=== PATIENT | male | born 1955 | race Caucasian/White ===

== ENCOUNTER 2018-12-14 11:21 | Inpatient (IN) | payer OTHER ==
[2018-12-14] MEDS ORDERED: CYCLOBENZAPRINE 10 MG TAB PO STA (12:06)
[2018-12-14] MEDS ORDERED: KETOROLAC 60 MG/2 ML VIAL IM STA (12:06)
--- NOTE | 2018-12-14 12:51 | ED ---
Back Pain HPI - General Source: patient, RN notes reviewed Limitations: no limitations <Catarino Moore - Last Filed: 12/14/18 14:58> <Gus Gudino - Last Filed: 12/14/18 15:03> - General Chief Complaint: Back Pain/Injury Stated Complaint: back pain Time Seen by Provider: 12/14/18 11:58 - History of Present Illness Initial Comments: 63-year-old male presents emergency Department with chief complaint of low back pain. Patient states she's had pain last few days. He does admit that he injured his right hip and low back in the past and states his been walking differently because it bothers in the rocks while states now his left low back pain. Denies any bowel bladder incontinence or retention. Denies any saddle anesthesias or lower extremity paresthesias. He has no abdominal complaints including diarrhea constipation. Patient denies any fevers or chills no dysuria no hematuria. Patient states is very anxious. Patient states that he took some Motrin last night. (Catarino Moore) - Related Data Home Medications Medication Instructions Recorded Confirmed Aspirin EC [Ecotrin Low Dose] 81 mg PO DAILY 12/14/18 12/14/18 [facility] 4 tab PO DAILY PRN 12/14/18 12/14/18 Calcium Carbonate [Calcium] 600 mg PO DAILY 12/14/18 12/14/18 Multivitamins, Thera [Multivitamin 1 tab PO DAILY 12/14/18 12/14/18 (formulary)] Naproxen Sodium [Aleve] 880 mg PO DAILY PRN 12/14/18 12/14/18 Allergies Allergy/AdvReac Type Severity Reaction Status Date / Time No Known Allergies Allergy Verified 12/14/18 11:52 Review of Systems ROS Other: All systems not noted in ROS Statement are negative. <Catarino Moore - Last Filed: 12/14/18 14:58> ROS Other: All systems not noted in ROS Statement are negative. <Gus Gudino - Last Filed: 12/14/18 15:03> ROS Statement: Those systems with pertinent positive or pertinent negative responses have been documented in the HPI. Past Medical History Past Medical History: No Reported History History of Any Multi-Drug Resistant Organisms: None Reported Past Surgical History: No Surgical Hx Reported Past Psychological History: No Psychological Hx Reported Smoking Status: Never smoker Past Alcohol Use History: None Reported Past Drug Use History: None Reported <Catarino Moore - Last Filed: 12/14/18 14:58> General Exam Limitations: no limitations General appearance: alert, in no apparent distress, anxious Head exam: Present: atraumatic, normocephalic, normal inspection Eye exam: Present: normal appearance, PERRL, EOMI. Absent: scleral icterus, conjunctival injection, periorbital swelling Respiratory exam: Present: normal lung sounds bilaterally. Absent: respiratory distress, wheezes, rales, rhonchi, stridor Cardiovascular Exam: Present: normal rhythm, tachycardia, normal heart sounds. Absent: systolic murmur, diastolic murmur, rubs, gallop, clicks GI/Abdominal exam: Present: soft, normal bowel sounds. Absent: distended, tenderness, guarding, rebound, rigid Extremities exam: Present: other (Lower extremity strength equal bilaterally, neurovascular intact equal color equal warmth pain with left straight leg raise) Back exam: Present: full ROM, tenderness (Mild left lower lumbar), paraspinal tenderness. Absent: CVA tenderness (R), CVA tenderness (L), vertebral tenderness Neurological exam: Present: alert, oriented X3, CN II-XII intact, reflexes normal. Absent: motor sensory deficit Skin exam: Present: warm, dry, intact, normal color. Absent: rash <Catarino Moore - Last Filed: 12/14/18 14:58> Vital Signs 12/14/18 12/14/18 11:31 12:48 Temperature 98.5 F Pulse Rate 115 H 104 H Respiratory 18 20 Rate Blood Pressure 158/95 176/93 O2 Sat by Pulse 97 95 Oximetry Medical Decision Making - Lab Data Result diagrams: 12/14/18 14:17 12/14/18 14:17 <Catarino Moore - Last Filed: 12/14/18 14:58> - Lab Data Result diagrams: 12/14/18 14:17 12/14/18 14:17 <Gus Gudino - Last Filed: 12/14/18 15:03> - Medical Decision Making 63-year-old male presented for low back pain. X-rays obtained which shows compression fracture CT is obtained which shows extensive bony involvement with cancer. Patient will be admitted for further workup and pain management. (Catarino Moore) Case was discussed with practitioner caryn. Chart and reports reviewed. Case was discussed with Dr. Cole, who will admit covering for hospital call. Oncology will be placed on consult. (Gus Gudino) - Lab Data Lab Results 12/14/18 12/14/18 Range/Units 14:17 14:17 WBC 12.8 H (3.8-10.6) k/uL RBC 5.30 (4.30-5.90) m/uL Hgb 14.0 (13.0-17.5) gm/dL Hct 43.1 (39.0-53.0) % MCV 81.4 (80.0-100.0) fL MCH 26.5 (25.0-35.0) pg MCHC 32.5 (31.0-37.0) g/dL RDW 15.3 (11.5-15.5) % Plt Count 398 (150-450) k/uL Neutrophils % 76 % Lymphocytes % 19 % Monocytes % 3 % Eosinophils % 1 % Basophils % 0 % Neutrophils # 9.7 H (1.3-7.7) k/uL Lymphocytes # 2.4 (1.0-4.8) k/uL Monocytes # 0.4 (0-1.0) k/uL Eosinophils # 0.1 (0-0.7) k/uL Basophils # 0.1 (0-0.2) k/uL Sodium 142 (137-145) mmol/L Potassium 4.4 (3.5-5.1) mmol/L Chloride 106 (98-107) mmol/L Carbon Dioxide 26 (22-30) mmol/L Anion Gap 10 mmol/L BUN 22 H (9-20) mg/dL Creatinine 0.85 (0.66-1.25) mg/dL Est GFR (CKD-EPI)AfAm >90 (>60 ml/min/1.73 sqM) Est GFR (CKD-EPI)NonAf >90 (>60 ml/min/1.73 sqM) Glucose 118 H (74-99) mg/dL Calcium 10.1 (8.4-10.2) mg/dL Total Bilirubin 0.7 (0.2-1.3) mg/dL AST 52 (17-59) U/L ALT 39 (21-72) U/L Alkaline Phosphatase 1359 H (38-126) U/L Total Protein 7.4 (6.3-8.2) g/dL Albumin 3.8 (3.5-5.0) g/dL - EKG Data EKG Comments: EKG performed at 20:15 sinus tachycardia with rate of 111 VT 160 QRS 82 QT/QTC 326/443 (Catarino Moore) Disposition <Catarino Moore - Last Filed: 12/14/18 14:58> <Gus Gudino - Last Filed: 12/14/18 15:03> Clinical Impression: Metastatic cancer, Lumbar compression fracture Disposition: ADMITTED IP TO THIS HOSP Referrals: None,Stated [Primary Care Provider] - 1-2 days
--- NOTE | 2018-12-14 13:14 | XR ---
EXAMINATION TYPE: XR lumbosacral spine min 4V DATE OF EXAM: 12/14/2018 CLINICAL HISTORY: Low back pain for 4 days. TECHNIQUE: Frontal, lateral, and oblique images of the lumbar spine are obtained. COMPARISON: None FINDINGS: There are 5 lumbar type vertebral bodies identified. There is mild borderline compression fracture with poorly defined lucency through the L2 vertebra, extension to superior endplate is felt present. No suspicious posterior retropulsion is seen. Alignment is satisfactory. There is advanced d isc space narrowing L5-S1 level. There is mild to moderate additional multilevel disc space narrowing . Mild multilevel anterior and lateral spurring is appreciated on oblique images. Facet arthropathy l ower lumbar spine is seen. Multilevel spinous process hypertrophy is noted. There is suggestion of ab normal mixed sclerotic and lytic appearance to bone adjacent to left sacroiliac joint. IMPRESSION: Mild to moderate compression type fracture L2 level may be pathologic and acute in age. C orrelate for primary neoplasm or underlying Paget's disease. Further clinical workup advised.
--- NOTE | 2018-12-14 14:09 | CT ---
EXAMINATION TYPE: CT lumbar spine wo con DATE OF EXAM: 12/14/2018 COMPARISON: Plain film same date HISTORY: Back pain CT DLP: 1576.4 mGycm Automated exposure control for dose reduction was used. An unenhanced CT of the lumbar spine was performed. Bone and soft tissue window settings are submitt ed as well as coronal and sagittal reconstructions. FINDINGS: There is abnormal lucency involving the sacrum and lumbar vertebral bodies. Sacrum shows large area o f destruction and there is also lytic destruction with associated soft tissue mass involving the left ilium as noted on plain film, abnormal soft tissue extends into the spinal canal. Lumbar vertebral b odies show underlying degenerative disc change. Lytic destruction with associated soft tissue masses present within the sacrum and L2, T12 vertebral bodies. There is some retropulsion at L2 causing some spinal stenosis which is moderate to severe. Ly tic destruction extends into the right pedicle and transverse process, lamina. Indeterminate lung nodules are present at the right lung base greater than left as visualized portion s. IMPRESSION: Metastatic disease to the spine, sacrum, lungs as described.
[2018-12-14 14:37] LABS: Basophils # (A) 0.1 k/uL (0-0.2); Basophils % (A) 0 %; Eosinophils # (A) 0.1 k/uL (0-0.7); Eosinophils % (A) 1 %; HCT 43.1 % (39.0-53.0); Lymphocytes # (A) 2.4 k/uL (1.0-4.8); Lymphocytes % (A) 19 %; MCH 26.5 pg (25.0-35.0); MCHC 32.5 g/dL (31.0-37.0); MCV 81.4 fL (80.0-100.0); Mean Platelet Volume 6.4; Monocytes # (A) 0.4 k/uL (0-1.0); Monocytes % (A) 3 %; Neutrophils # (A) 9.7 k/uL (1.3-7.7); Neutrophils % (A) 76 %; Platelet Count 398 k/uL (150-450); RDW 15.3 % (11.5-15.5); WBC 12.8 k/uL (3.8-10.6)
[2018-12-14 14:48] LABS: ALT 39 U/L (21-72); AST 52 U/L (17-59); Albumin 3.8 g/dL (3.5-5.0); Alkaline Phosphatase 1359 U/L (38-126); Anion Gap 10 mmol/L; Blood Urea Nitrogen 22 mg/dL (9-20); Calcium 10.1 mg/dL (8.4-10.2); Carbon Dioxide 26 mmol/L (22-30); Chloride 106 mmol/L (98-107); Glucose 118 mg/dL (74-99); Potassium 4.4 mmol/L (3.5-5.1); Sodium 142 mmol/L (137-145); Total Bilirubin 0.7 mg/dL (0.2-1.3); Total Protein 7.4 g/dL (6.3-8.2)
[2018-12-14] MEDS ORDERED: MORPHINE SULFATE 4 MG/ML SYRINGE IVP STA (14:58)
[2018-12-14] MEDS ORDERED: ONDANSETRON 4 MG/2 ML VIAL IVP STA (14:58)
[2018-12-14] MEDS ORDERED: NALOXONE 0.4 MG/ML 1 ML VIAL IV PRN (15:24)
[2018-12-14] MEDS ORDERED: ONDANSETRON 4 MG/2 ML VIAL IVP PRN (15:24)
[2018-12-14] MEDS ORDERED: HYDROmorphone 0.5 MG/0.5 ML SYRINGE IVP PRN (15:24)
--- NOTE | 2018-12-14 16:23 | P.HPIM ---
History of Present Illness 63-year-old pleasant gentleman who hasn't seen a doctor that if he is came in with complaints of low back pain has been getting worse for few months much worse for last 3-4 days including difficulty walking although patient denied any localized pain patient has minimal radicular pain to the right groin area denied any saddle anesthesia loss of bowel or bladder incontinence. Patient any fever chills nausea vomiting. Patient had a back x-ray which was suspicious for metastatic disease because of which patient had a CAT scan of the lumbar spine which showed metastatic disease to vertebral bodies of the T12 , L1 without any significant spinal involvement. Patient does have metastatic disease in the lung as well patient is not a smoker never got any screening procedures like colonoscopy or prostate exam in the past. Review of Systems REVIEW OF SYSTEMS: CONSTITUTIONAL: No fever, no malaise, no fatigue. HEENT: No recent visual problems or hearing problems. Denied any sore throat. CARDIOVASCULAR: No chest pain, orthopnea, PND, no palpitations, no syncope. PULMONARY: No shortness of breath, no cough, no hemoptysis. GASTROINTESTINAL: No diarrhea, no nausea, no vomiting, no abdominal pain. NEUROLOGICAL: No headaches, no weakness, no numbness. HEMATOLOGICAL: Denies any bleeding or petechiae. GENITOURINARY: Denies any burning micturition, frequency, or urgency. MUSCULOSKELETAL/RHEUMATOLOGICAL: As mentioned in HPI ENDOCRINE: Denies any polyuria or polydipsia. The rest of the 14-point review of systems is negative. Past Medical History Past Medical History: No Reported History History of Any Multi-Drug Resistant Organisms: None Reported Past Surgical History: No Surgical Hx Reported Past Psychological History: No Psychological Hx Reported Smoking Status: Never smoker Past Alcohol Use History: None Reported Past Drug Use History: None Reported Medications and Allergies Home Medications Medication Instructions Recorded Confirmed Type Aspirin EC [Ecotrin Low Dose] 81 mg PO DAILY 12/14/18 12/14/18 History [facility] 4 tab PO DAILY PRN 12/14/18 12/14/18 History Calcium Carbonate [Calcium] 600 mg PO DAILY 12/14/18 12/14/18 History Multivitamins, Thera [Multivitamin 1 tab PO DAILY 12/14/18 12/14/18 History (formulary)] Naproxen Sodium [Aleve] 880 mg PO DAILY PRN 12/14/18 12/14/18 History Allergies Allergy/AdvReac Type Severity Reaction Status Date / Time No Known Allergies Allergy Verified 12/14/18 11:52 Physical Exam Vitals: Vital Signs Temp Pulse Resp BP Pulse Ox 12/14/18 15:47 98.0 F 106 H 20 166/96 98 12/14/18 12:48 104 H 20 176/93 95 12/14/18 11:31 98.5 F 115 H 18 158/95 97 Intake and Output 12/14/18 12/14/18 12/14/18 06:59 14:59 22:59 Other: Weight 127.006 kg PHYSICAL EXAMINATION: GENERAL: The patient is alert and oriented x3, not in any acute distress. Morbidly obese HEENT: Pupils are round and equally reacting to light. EOMI. No scleral icterus. No conjunctival pallor. Normocephalic, atraumatic. No pharyngeal erythema. No thyromegaly. CARDIOVASCULAR: S1 and S2 present. No murmurs, rubs, or gallops. PULMONARY: Chest is clear to auscultation, no wheezing or crackles. ABDOMEN: Soft, nontender, nondistended, normoactive bowel sounds. No palpable organomegaly. MUSCULOSKELETAL: No joint swelling or deformity. EXTREMITIES: No cyanosis, clubbing, or pedal edema. NEUROLOGICAL: Gross neurological examination did not reveal any focal deficits. SKIN: No rashes. Results CBC & Chem 7: 12/14/18 14:17 12/14/18 14:17 Labs: Abnormal Lab Results - Last 24 Hours (Table) 12/14/18 12/14/18 Range/Units 14:17 14:17 WBC 12.8 H (3.8-10.6) k/uL Neutrophils # 9.7 H (1.3-7.7) k/uL BUN 22 H (9-20) mg/dL Glucose 118 H (74-99) mg/dL Alkaline Phosphatase 1359 H (38-126) U/L Assessment and Plan Plan: -Severe back pain: Secondary to metastatic disease with unknown primary with some radiculopathy, patient was started on Decadron patient was started started on Toradol as well along with the GI prophylaxis. We'll consult oncology further workup indicated depending on oncology recommendations we'll also consult radiation oncology to see there is any benefit from radiation therapy even before the biopsy . Physical data been occupational therapy consultation, no evidence of spinal cord compression clinically. -Leukocytosis reactive Tachycardia and elevated blood pressure probably secondary to pain. The pain monitor the blood pressure unsure whether patient is diabetic -Morbid obesity Patient will need pharmacologic GI as well as DVT prophylaxis
[2018-12-14 16:38] VITALS: BMI 40.1
[2018-12-14 17:07] LABS: Appearance,Urine Clear (Clear); Bilirubin,Urine Negative (Negative); Blood,Urine Negative (Negative); Color,Urine Yellow; Glucose,Urine (UA) Negative (Negative); Hyaline Casts,Urine 1 /lpf (0-2); Ketones,Urine 1+ (Negative); Leukocyte Esterase,Urine Trace (Negative); Mucus,Urine Occasional /hpf; Nitrite,Urine Negative (Negative); PH, Urine 5.5 (5.0-8.0); Protein,Urine Trace (Negative); RBC,Urine 1 /hpf (0-5); Specific Gravity,Urine 1.011 (1.001-1.035); Squamous Epithelial Cell,Urine 1 /hpf (0-4); Urobilinogen,Urine <2.0 mg/dL (<2.0); WBC,Urine 4 /hpf (0-5)
[2018-12-14] MEDS: DEXAMETHASONE SOD PHOSPHATE 4 MG/ML 1 ML VIAL IV SCH ×2 (17:13→23:32)
--- NOTE | 2018-12-14 17:56 | CT ---
EXAMINATION TYPE: CT pelvis wo con DATE OF EXAM: 12/14/2018 COMPARISON: CT lumbar spine and plain film lumbar spine same date HISTORY: back pain CT DLP: 781.6 mGycm Automated exposure control for dose reduction was used. Helical acquisition through the pelvis FINDINGS: Multiple lytic lesions are scattered within the spine and pelvis with soft tissue component compatibl e with metastatic disease. No evident pelvic adenopathy. No free fluid. Uterus and adnexal structures are unremarkable. Diverticular changes associated with the sigmoid colon. Urinary bladder is normal. IMPRESSION: METASTATIC DISEASE.
--- NOTE | 2018-12-14 18:57 | XR ---
EXAMINATION TYPE: XR chest 2V DATE OF EXAM: 12/14/2018 COMPARISON: NONE HISTORY: Chest pain TECHNIQUE: Frontal and lateral views of the chest are obtained. FINDINGS: There are numerous nodular densities throughout the lungs that measure up to 1.5 cm. There is no heart failure. Heart is top normal in size. Thoracic aorta is atheromatous. There is osteopeni a with 40% anterior wedging of a lower thoracic vertebra. There is calcification at the right shoulde r joint. IMPRESSION: Multiple pulmonary nodules. No heart failure. Pulmonary metastatic disease is possible. Follow-up is recommended.
[2018-12-14] MEDS: FAMOTIDINE 20 MG TAB PO SCH (22:03)
[2018-12-14] MEDS: HEPARIN SODIUM,PORCINE 5,000 UNIT/ML 1 ML VIAL SQ SCH (23:31)
[2018-12-14] MEDS: MORPHINE SULFATE 4 MG/ML SYRINGE IV PRN (23:58)
[2018-12-15] MEDS: DEXAMETHASONE SOD PHOSPHATE 4 MG/ML 1 ML VIAL IV SCH ×4 (06:23→23:12)
[2018-12-15] MEDS: HEPARIN SODIUM,PORCINE 5,000 UNIT/ML 1 ML VIAL SQ SCH ×3 (07:29→23:12)
[2018-12-15] MEDS: FAMOTIDINE 20 MG TAB PO SCH ×2 (07:29→20:39)
[2018-12-15] MEDS: MORPHINE SULFATE 4 MG/ML SYRINGE IV PRN ×2 (07:35→13:23)
[2018-12-15] MEDS: IOPAMIDOL-300 CONTRAST 30 ML VIAL (ORAL USE) PO PRN ×2 (08:01→08:57)
--- NOTE | 2018-12-15 11:12 | CT ---
EXAMINATION TYPE: CT ChestAbdPelvis w con DATE OF EXAM: 12/15/2018 COMPARISON: CT pelvis 12/14/2018 HISTORY: Metastatic cancer to the bone CT DLP: 2133.1 mGycm Automated exposure control for dose reduction was used. CONTRAST: CT scan of the chest, abdomen and pelvis is performed with Oral Contrast and with IV Contrast, patien t injected with 100 mL of Isovue 300. FINDINGS: LUNGS: There are in numerable pulmonary nodules seen bilaterally measuring from 1 cm to 2 mm scattere d throughout all lobes and segments of the lungs bilaterally. No pneumothorax. There is a small right pleural effusion. Calcified granuloma in the right lung noted. MEDIASTINUM: Aorta of normal caliber. Calcified lymph nodes in the hilum and mediastinum noted. OTHER: Skin thickening with multiple large left breast masses the largest of which is seen to measur e 5.2 cm.. LIVER/GB: There is a gallstone and there is gallbladder hydrops. Gallbladder measures approximately 1 1 cm. PANCREAS: No significant abnormality is seen. SPLEEN: Splenic granuloma noted. ADRENALS: No significant abnormality is seen. KIDNEYS: No significant abnormality is seen. BOWEL: No significant abnormality is seen. LYMPH NODES: No greater than 1 cm abdominal or pelvic lymph nodes are appreciated. OSSEOUS STRUCTURES: There is extensive bony metastasis throughout virtually all structures of the vis ualized skeletal system including the expansile lesion of the clavicle on the left. The sternum also is involved with multiple rib lesions as well as the medial aspect of the right clavicle. Destructive lesions involving the pelvis or widespread as well as bilateral femur. Expansile lesion previously n oted with suspected previous pathologic fracture of the right pubic ramus is noted. Soft tissue mass with extensive destructive change of the sacrum as previously noted. Involvement and encasement this sacral foramina or hollow is suspected. At the level of S1 there appears to be abnormal soft tissue r esult in severe compression of the spinal canal. Multilevel degenerative disc disease and facet arthr opathy noted. At the level of L2 there is a compression fracture with extension into the pedicle and vertebral body there is retropulsion and likely severe compression of the thecal sac. Multiple rib de formities are seen. Compression fracture of T8 L1 and endplate deformity of T12. IMPRESSION: 1. And destructive bony lesions with suspicion of thecal sac or spinal cord compression at the level of L2 and severe thecal sac compression at the level of S1. Compression fractures of L2 and T8. Could not exclude cord contact or compression at T8, L2 or severe nerve root impingement thecal sac compre ssion within the sacrum. 2. Innumerable pulmonary nodules compatible with widespread metastases 3. Large left chest or breast masses as discussed above. Report called to patient's nurse A Red level critical message alert has been initiated for Alonso Butler MD via the [employer] Results System on 12/15/2018 11:10 AM. This message alert has been sent to Alonso Butler MD via the p references provided by the clinician for the receipt of Radiology Critical Findings[place] [id number].
--- NOTE | 2018-12-15 16:20 | P.CONS ---
History of Present Illness - Reason for Consult Consult date: 12/15/18 back pain Requesting physician: Alonso Butler - Chief Complaint low back pain - History of Present Illness The patient is a 63-year-old female (identifies as male) with a history of progressive low back pain. He presents to the hospital and imaging reveals multiple bony metastases, likely from a breast primary. The patient reports a history of right-sided hip pain, which initially began back in June. He thought this represented a pinched nerve, and did not seek any medical care. The patient has in fact not seeing any physicians in 35 years. He reported tolerable low back pain for several months, but does report that he had to be less active and was unable to do any physical activities at work. This pain however became increasingly severe this past weekend. He noted that when standing up from sitting or laying down, pain in the lower back was become intolerable and shoot up to 10 out of 10. Within the patient was in active, the pain was still present however only a 3-4 out of 10. The patient has been able to ambulate, but notes that actually getting up to walk has become more difficult. He specifically denies difficulty with loss of bladder, bowel control, or weakness in the legs. He does report a right-sided thigh numbness, which usually occurs after he's walked for several steps. The patient was admitted to the ER on December 14, and a CT scan of the lumbar spine and pelvis were performed. These scans revealed multiple lytic lesions in the spine and pelvis, as well as a large destructive right sacral lesion, and a compression fracture at L2 with concern for canal encroachment. The patient subsequently underwent on December [address] scan of the chest, abdomen and pelvis. The study revealed a 5 cm left breast mass, innumerable 1-2 cm lung metastasis, as well as significant bone disease. There was concern for possible spinal canal invasion at T8, L2 and significant mass effect on the thecal sac at the level of the sacrum. Review of Systems Constitutional: Denies chills, Denies fever Eyes: bilateral blurred vision Ears: deny: decreased hearing Ears, nose, mouth and throat: Denies headache Cardiovascular: Denies chest pain Respiratory: Denies congestion, Denies cough Gastrointestinal: Denies abdominal pain Genitourinary: Denies flank pain Musculoskeletal: Reports low back pain Integumentary: Denies rash Neurological: Denies aphasia, Denies ataxia Psychiatric: Denies confusion Past Medical History Past Medical History: No Reported History History of Any Multi-Drug Resistant Organisms: None Reported Past Surgical History: No Surgical Hx Reported Past Anesthesia/Blood Transfusion Reactions: No Reported Reaction Past Psychological History: No Psychological Hx Reported Smoking Status: Never smoker Past Alcohol Use History: None Reported Past Drug Use History: None Reported - Past Family History Father Family Medical History: No Reported History Medications and Allergies Home Medications Medication Instructions Recorded Confirmed Type Aspirin EC [Ecotrin Low Dose] 81 mg PO DAILY 12/14/18 12/14/18 History [facility] 4 tab PO DAILY PRN 12/14/18 12/14/18 History Calcium Carbonate [Calcium] 600 mg PO DAILY 12/14/18 12/14/18 History Multivitamins, Thera [Multivitamin 1 tab PO DAILY 12/14/18 12/14/18 History (formulary)] Naproxen Sodium [Aleve] 880 mg PO DAILY PRN 12/14/18 12/14/18 History Allergies Allergy/AdvReac Type Severity Reaction Status Date / Time No Known Allergies Allergy Verified 12/14/18 11:52 Physical Exam Vitals: Vital Signs Temp Pulse Resp BP Pulse Ox 12/15/18 07:00 98.3 F 85 18 149/76 97 12/15/18 00:00 97.9 F 94 18 131/78 96 12/14/18 19:00 98.0 F 101 H 18 133/73 94 L 12/14/18 16:45 97.6 F 105 H 18 162/84 96 Intake and Output 12/15/18 12/15/18 12/15/18 06:59 14:59 22:59 Other: Voiding Method Toilet # Voids 1 1 Weight 127.006 kg - Constitutional General appearance: cooperative, obese - EENT Eyes: EOMI, PERRLA ENT: hearing grossly normal - Neck Neck: no lymphadenopathy - Respiratory Respiratory: bilateral: CTA - Cardiovascular Rhythm: regular - Gastrointestinal General gastrointestinal: no distended - Neurologic Neurologic: CNII-XII intact - Musculoskeletal Musculoskeletal: gait normal, strength equal bilaterally - Psychiatric Psychiatric: A&O x's 3 Results CBC & Chem 7: 12/14/18 14:17 12/14/18 14:17 Labs: Abnormal Lab Results - Last 24 Hours (Table) 12/14/18 Range/Units 16:30 Urine Protein Trace H (Negative) Urine Ketones 1+ H (Negative) Ur Leukocyte Esterase Trace H (Negative) Urine Mucus Occasional H (None) /hpf CT scan - abdomen: report reviewed, image reviewed CT scan - chest: report reviewed, image reviewed CT scan - pelvis: report reviewed, image reviewed Assessment and Plan Plan: 63 year old female (identifies as male) with likely new metastatic left-sided breast cancer with extensive bony disease and significant low back pain with weight-bearing. 1. T8/L2 disease - concern for spinal canal invasion. MRI pending, add on decadron. Patient not showing overt signs of myelopathy. MRI T/L spine. Patient simulated and given first fraction of radiation today. Will also need extensive disease within sacrum treated, but that was omitted for expediency today. 2. Left sided breast cancer - presumptive diagnosis. Pathology from biopsy pending. Patient treated with radiation despite pending pathology considering concern for spinal canal invasion on CT. Time with Patient: Greater than 30
--- NOTE | 2018-12-15 17:03 | P.PN ---
Subjective Progress Note Date: 12/15/18 Interval history: 63-year-old pleasant gentleman who hasn't seen a doctor that if he is came in with complaints of low back pain has been getting worse for few months much worse for last 3-4 days including difficulty walking although patient denied any localized pain patient has minimal radicular pain to the right groin area denied any saddle anesthesia loss of bowel or bladder incontinence. Patient any fever chills nausea vomiting. Patient had a back x-ray which was suspicious for metastatic disease because of which patient had a CAT scan of the lumbar spine which showed metastatic disease to vertebral bodies of the T12 , L1 without any significant spinal involvement. Patient does have metastatic disease in the lung as well patient is not a smoker never got any screening procedures like colonoscopy or prostate exam in the past. 12/15/2018 CT report suspicion of thecal sac or spinal cord compression at the level of L2 and severe thecal sac compression at the level of S1 in addition to compression fractures of L2 and T8, could not exclude cord contact or compression at T8, L2 or severe nerve root impingement thecal sac compression within the sacrum, Pulmonary nodules-widespread metastasis, large left chest/breast mass.breast biopsy pending. MRA of lumbar spine ordered. Review of Systems REVIEW OF SYSTEMS: CONSTITUTIONAL: No fever, no malaise, no fatigue. HEENT: No recent visual problems or hearing problems. Denied any sore throat. CARDIOVASCULAR: No chest pain, orthopnea, PND, no palpitations, no syncope. PULMONARY: No shortness of breath, no cough, no hemoptysis. GASTROINTESTINAL: No diarrhea, no nausea, no vomiting, no abdominal pain. NEUROLOGICAL: No headaches, no weakness, no numbness. HEMATOLOGICAL: Denies any bleeding or petechiae. GENITOURINARY: Denies any burning micturition, frequency, or urgency. MUSCULOSKELETAL/RHEUMATOLOGICAL: As mentioned in HPI ENDOCRINE: Denies any polyuria or polydipsia. The rest of the 14-point review of systems is negative. Active Medications Dexamethasone Sodium Phosphate (Decadron) 4 mg IV Q6HR [facility] Last Admin: 12/15/18 11:11 Dose: 4 mg Famotidine (Pepcid) 20 mg PO BID [facility] Last Admin: 12/15/18 07:29 Dose: 20 mg Heparin Sodium (Porcine) (Heparin) 5,000 unit SQ Q8HR [facility] Last Admin: 12/15/18 14:59 Dose: Not Given Ketorolac Tromethamine (Toradol) 15 mg IVP Q6HR PRN PRN Reason: Pain Stop: 12/19/18 16:15 Morphine Sulfate (Morphine Sulfate (Inj)) 4 mg IV Q4HR PRN PRN Reason: Severe Pain Last Admin: 12/15/18 13:23 Dose: 4 mg Naloxone HCl (Narcan) 0.2 mg IV Q2M PRN PRN Reason: Opioid Reversal Ondansetron HCl (Zofran) 4 mg IVP Q8HR PRN PRN Reason: Nausea And Vomiting Objective - Vital Signs Vital signs: Vital Signs Temp 98.3 F 12/15/18 07:00 Pulse 85 12/15/18 07:00 Resp 18 12/15/18 07:00 BP 149/76 12/15/18 07:00 Pulse Ox 97 12/15/18 07:00 Intake & Output 12/14/18 12/15/18 12/15/18 18:59 06:59 18:59 Intake Total 296 Balance 296 Weight 127.006 kg 127.006 kg Intake: Oral 296 Other: Voiding Method Toilet Toilet Urinal # Voids 1 1 - Exam GENERAL: The patient is alert and oriented x3, not in any acute distress. Morbidly obese HEENT: Pupils are round and equally reacting to light. EOMI. No scleral icterus. No conjunctival pallor. Normocephalic, atraumatic. CARDIOVASCULAR: S1 and S2 present. No murmurs, rubs, or gallops. PULMONARY: Chest is clear to auscultation, no wheezing or crackles. ABDOMEN: Soft, nontender, nondistended, normoactive bowel sounds. No palpable organomegaly. MUSCULOSKELETAL: No joint swelling or deformity. EXTREMITIES: No cyanosis, clubbing, or pedal edema. NEUROLOGICAL: Gross neurological examination did not reveal any focal deficits. SKIN: No rashes. - Labs CBC & Chem 7: 12/14/18 14:17 12/14/18 14:17 Labs: Abnormal Lab Results - Last 24 Hours (Table) 12/14/18 Range/Units 16:30 Urine Protein Trace H (Negative) Urine Ketones 1+ H (Negative) Ur Leukocyte Esterase Trace H (Negative) Urine Mucus Occasional H (None) /hpf Assessment and Plan Assessment: -Severe back pain: Secondary to metastatic disease with unknown primary with some radiculopathy. CT suggestive of spinal cord compression,T8,L2 as mentioned above. MR lumbar spine pending. -Possible left-sided breast cancer, biopsy pending -Leukocytosis reactive Tachycardia and elevated blood pressure probably secondary to pain. -Morbid obesity Plan continue on current medication regime ,monitoring and symptomatic treatment. Maintain Decadron, Toradol. Evaluated by Oncology radiology with first radiation treatment administered today. MRA of lumbar spine ordered. GI and DVT prophylaxis. Prognosis guarded given multiple complex medical issues. The impression and plan of care has been dictated as directed. : I performed a history and examination of this patient, discussed the same with the dictator. I agree with the dictator's note ,documented as a scribe. Any additional findings or plans will be noted.
--- NOTE | 2018-12-16 01:43 | P.CONS ---
History of Present Illness - Reason for Consult Consult date: 12/15/18 Bone mets - History of Present Illness The pt is 63 yr old, and identifies self as male. However, on imaging female internal and external genitalia noted, indicating biologic female. The pt had not seen a physician for 30 + years. She had been having rt lower back and rt groin pain off and on since about 9-10 mths. A few days prior to admission, while getting up in [employer]ab[employer]ism , she felt " something pop" in her lower pelvic area, and developed marked pain, with radiation to the left hip/ groin, and down the LLE. She therefore came in to the ER, with CT of the L-S spine showing metastatic appearing lesions in the lower T spine, L spine ( most prominent at L2) with significant destruction of the sacrum on the left. Nodules in both lung bases were also noted. She was thus admitted and consult placed. No prior history of malignancy, per pt Review of Systems Constitutional: Reports chronic pain, Denies chills, Denies fever Eyes: denies blurred vision, denies pain Ears: deny: decreased hearing, ear discharge, earache, tinnitus Ears, nose, mouth and throat: Denies headache, Denies sore throat Cardiovascular: Denies chest pain, Denies shortness of breath Respiratory: Denies cough Gastrointestinal: Denies abdominal pain, Denies diarrhea, Denies nausea, Denies vomiting Genitourinary: Reports as per HPI Musculoskeletal: Reports as per HPI, Reports low back pain Integumentary: Denies pruritus, Denies rash Neurological: Denies numbness, Denies weakness Psychiatric: Denies anxiety, Denies depression Endocrine: Denies fatigue, Denies weight change Hematologic/Lymphatic: Reports as per HPI Past Medical History Past Medical History: No Reported History History of Any Multi-Drug Resistant Organisms: None Reported Past Surgical History: No Surgical Hx Reported Past Anesthesia/Blood Transfusion Reactions: No Reported Reaction Past Psychological History: No Psychological Hx Reported Smoking Status: Never smoker Past Alcohol Use History: None Reported Past Drug Use History: None Reported - Past Family History Father Family Medical History: No Reported History Medications and Allergies Home Medications Medication Instructions Recorded Confirmed Type Aspirin EC [Ecotrin Low Dose] 81 mg PO DAILY 12/14/18 12/14/18 History [place] [facility] And [facility] 4 tab PO DAILY PRN 12/14/18 12/14/18 History Calcium Carbonate [Calcium] 600 mg PO DAILY 12/14/18 12/14/18 History Multivitamins, Thera [Multivitamin 1 tab PO DAILY 12/14/18 12/14/18 History (formulary)] Naproxen Sodium [Aleve] 880 mg PO DAILY PRN 12/14/18 12/14/18 History Allergies Allergy/AdvReac Type Severity Reaction Status Date / Time No Known Allergies Allergy Verified 12/14/18 11:52 Physical Exam Vitals: Vital Signs Temp Pulse Resp BP Pulse Ox 12/16/18 00:17 97.5 F L 79 16 146/79 96 12/15/18 20:00 97.7 F 84 18 142/80 93 L 12/15/18 18:13 98.0 F 92 18 154/87 91 L 12/15/18 07:00 98.3 F 85 18 149/76 97 Intake and Output 12/15/18 12/15/18 12/16/18 14:59 22:59 06:59 Other: Voiding Method Toilet Toilet # Voids 1 1 Weight 127.006 kg - Constitutional General appearance: no acute distress - EENT Eyes: EOMI, PERRLA ENT: hearing grossly normal, normal oropharynx - Neck Neck: no lymphadenopathy Thyroid: bilateral: normal size - Respiratory Respiratory: bilateral: CTA - Cardiovascular Rhythm: regular Heart sounds: normal: S1, S2 - Gastrointestinal General gastrointestinal: normal bowel sounds, soft - Integumentary Integumentary: ulcer (destructive ulcer involving left nipple areolar complex) - Neurologic Neurologic: CNII-XII intact, focal deficits - Musculoskeletal Musculoskeletal: strength equal bilaterally - Psychiatric Psychiatric: A&O x's 3, appropriate affect Left firm, fixed breast mass, 4-5 cm , irregular Results CBC & Chem 7: 12/14/18 14:17 12/14/18 14:17 Comments: CT L spine report reviewed L spine x ray report reviewed Chest x-ray: report reviewed CT scan - pelvis: report reviewed Assessment and Plan (1) Metastatic cancer Narrative/Plan: The pt is presenting with multiple areas of metastatic appearing lesions involving the T/L spine and sacrum. She has no evidence of cord compression clinically. - Case d/w IM. Based on physical exam findings, a breast primary is most likely - Consult placed for IR for biopsy of breast mass - Rad Onc consult placed. Case d/w Rad Onc. As noted, there is no evidence of cord compression clinically. They will target the sacrum, and L2, as well as possibly T8 - Pt has been placed on steroids - Further recommendations once pathology is finalized Current Visit: Yes Status: Acute Code(s): C79.9 - SECONDARY MALIGNANT NEOPLASM OF UNSPECIFIED SITE SNOMED Code(s): 499150927
[2018-12-16] MEDS: MORPHINE SULFATE 4 MG/ML SYRINGE IV PRN ×3 (02:40→12:43)
[2018-12-16] MEDS: DEXAMETHASONE SOD PHOSPHATE 4 MG/ML 1 ML VIAL IV SCH ×4 (05:18→23:45)
[2018-12-16] MEDS: HEPARIN SODIUM,PORCINE 5,000 UNIT/ML 1 ML VIAL SQ SCH ×3 (07:39→23:45)
[2018-12-16] MEDS: FAMOTIDINE 20 MG TAB PO SCH ×2 (07:39→21:38)
[2018-12-16] MEDS: KETOROLAC 30 MG/ML 1 ML VIAL IVP PRN ×2 (11:32→17:05)
--- NOTE | 2018-12-16 14:31 | MR ---
EXAMINATION TYPE: MR lumbar spine wo/w con DATE OF EXAM: 12/16/2018 COMPARISON: HISTORY: Cord compression TECHNIQUE: Multiplanar, multisequence images of the lumbar spine were acquired utilizing 13 mL intravenous Gadav ist gadolinium contrast. There is abnormal extensive decreased signal on the T1 images involving numerous lower thoracic and l umbar vertebral bodies. There is some expansion of the L2 vertebral body posteriorly into the spinal canal. There is slight compression deformity of 20% of L2. There is also involvement of the sacrum. T here is abnormal signal extending into the pedicles. There is diffuse pathologic enhancement. There i s a mild relative spinal stenosis at L2 level due to the posterior expansion of the vertebral body. T here is also mild expansion posteriorly at the T12 level and S1 level with slight narrowing of the sp inal canal. There is no lumbar paraspinal mass. Abnormal similar signal pattern also is present with expansion involving the visualized iliac crests. Lumbar nerve roots appear intact. There is some narrowing of the L2-3 neural foramina bilaterally due to the posterior expansion. IMPRESSION: Extensive abnormal signal in the lumbar spine and sacral spine with pathologic enhancement that is co nsistent with diffuse metastatic disease. This could be multiple myeloma. There is expansion of L2 ve rtebra with mild relative spinal stenosis. There is also minimal posterior expansion of T12 and sligh t narrowing of the spinal canal. There is similar change at S1 vertebra with narrowing of the sacral spinal canal at S1 level. There is pathologic compression fracture of L2 vertebra.
--- NOTE | 2018-12-16 15:53 | P.PN ---
Subjective 63-year-old pleasant gentleman who hasn't seen a doctor that if he is came in with complaints of low back pain has been getting worse for few months much worse for last 3-4 days including difficulty walking although patient denied any localized pain patient has minimal radicular pain to the right groin area denied any saddle anesthesia loss of bowel or bladder incontinence. Patient any fever chills nausea vomiting. Patient had a back x-ray which was suspicious for metastatic disease because of which patient had a CAT scan of the lumbar spine which showed metastatic disease to vertebral bodies of the T12 , L1 without any significant spinal involvement. Patient does have metastatic disease in the lung as well patient is not a smoker never got any screening procedures like colonoscopy or prostate exam in the past. 12/15/2018 CT report suspicion of thecal sac or spinal cord compression at the level of L2 and severe thecal sac compression at the level of S1 in addition to compression fractures of L2 and T8, could not exclude cord contact or compression at T8, L2 or severe nerve root impingement thecal sac compression within the sacrum, Pulmonary nodules-widespread metastasis, large left chest/breast mass.breast biopsy pending. MRA of lumbar spine ordered. 12/16/2018 MRI did not show any chronic compression but did show cervical canal stenosis at the couple areas patient's pain is not well controlled at patient is getting Toradol discussed at length with oncology the recommending breast biopsy before discharge on Tuesday meantime we'll try to control his pain. Constitutional: Denied any fatigue denied any fever. Cardio vascular: denied any chest pain, palpitations Gastrointestinal denied any nausea vomiting Pulmonary: Denied any shortness of breath cough Neurologic denied any new focal deficits All inpatient medications were reviewed and appropriate changes in these medications as dictated in the interval history and assessment and plan. Objective - Vital Signs Vital signs: Vital Signs Temp 97.4 F L 12/16/18 15:00 Pulse 85 12/16/18 15:00 Resp 16 12/16/18 15:00 BP 147/79 12/16/18 15:00 Pulse Ox 93 L 12/16/18 15:00 Intake & Output 12/15/18 12/16/18 12/16/18 18:59 06:59 18:59 Weight 127.006 kg Other: Voiding Method Toilet Toilet Toilet # Voids 1 1 1 - Exam GENERAL: The patient is alert and oriented x3, not in any acute distress. Morbidly obese HEENT: Pupils are round and equally reacting to light. EOMI. No scleral icterus. No conjunctival pallor. Normocephalic, atraumatic. CARDIOVASCULAR: S1 and S2 present. No murmurs, rubs, or gallops. PULMONARY: Chest is clear to auscultation, no wheezing or crackles. ABDOMEN: Soft, nontender, nondistended, normoactive bowel sounds. No palpable organomegaly. MUSCULOSKELETAL: No joint swelling or deformity. EXTREMITIES: No cyanosis, clubbing, or pedal edema. NEUROLOGICAL: Gross neurological examination did not reveal any focal deficits. SKIN: No rashes. - Labs CBC & Chem 7: 12/14/18 14:17 12/14/18 14:17 Labs: Abnormal Lab Results - Last 24 Hours (Table) 12/16/18 Range/Units 06:39 CA 15-3 Antigen 1043.9 H (0.0-32.3) U/mL Assessment and Plan Plan: -Back pain secondary to metastatic disease patient does have radiculopathy no cord compression as per the MRI continue with Decadron -Possible primary breast cancer biopsy results pending, CEA 15-3 is elevated -Leukocytosis reactive -Morbid obesity Patient will need pharmacologic GI as well as DVT prophylaxis
[2018-12-17] MEDS: DEXAMETHASONE SOD PHOSPHATE 4 MG/ML 1 ML VIAL IV SCH ×4 (05:43→23:43)
[2018-12-17] MEDS: HEPARIN SODIUM,PORCINE 5,000 UNIT/ML 1 ML VIAL SQ SCH ×3 (07:57→23:43)
[2018-12-17] MEDS: KETOROLAC 30 MG/ML 1 ML VIAL IVP PRN ×3 (07:58→23:43)
[2018-12-17] MEDS: SENNOSIDES-DOCUSATE SODIUM 1 EACH TAB PO SCH (07:58)
[2018-12-17] MEDS: FAMOTIDINE 20 MG TAB PO SCH ×2 (07:58→20:51)
[2018-12-17] MEDS ORDERED: ENALAPRILAT 1.25 MG/ML 1 ML VIAL IVP PRN (10:06)
--- NOTE | 2018-12-17 13:16 | P.PN ---
Subjective 63-year-old pleasant gentleman who hasn't seen a doctor that if he is came in with complaints of low back pain has been getting worse for few months much worse for last 3-4 days including difficulty walking although patient denied any localized pain patient has minimal radicular pain to the right groin area denied any saddle anesthesia loss of bowel or bladder incontinence. Patient any fever chills nausea vomiting. Patient had a back x-ray which was suspicious for metastatic disease because of which patient had a CAT scan of the lumbar spine which showed metastatic disease to vertebral bodies of the T12 , L1 without any significant spinal involvement. Patient does have metastatic disease in the lung as well patient is not a smoker never got any screening procedures like colonoscopy or prostate exam in the past. 12/15/2018 CT report suspicion of thecal sac or spinal cord compression at the level of L2 and severe thecal sac compression at the level of S1 in addition to compression fractures of L2 and T8, could not exclude cord contact or compression at T8, L2 or severe nerve root impingement thecal sac compression within the sacrum, Pulmonary nodules-widespread metastasis, large left chest/breast mass.breast biopsy pending. MRA of lumbar spine ordered. 12/16/2018 MRI did not show any chronic compression but did show cervical canal stenosis at the couple areas patient's pain is not well controlled at patient is getting Toradol discussed at length with oncology the recommending breast biopsy before discharge on Tuesday meantime we'll try to control his pain. 12/17/2018 Patient pain is better controlled now patient will undergo breast biopsy tomorrow and evaluation by radiation oncology after which patient probably can be discharged Constitutional: Denied any fatigue denied any fever. Cardio vascular: denied any chest pain, palpitations Gastrointestinal denied any nausea vomiting Pulmonary: Denied any shortness of breath cough Neurologic denied any new focal deficits All inpatient medications were reviewed and appropriate changes in these medications as dictated in the interval history and assessment and plan. Objective - Vital Signs Vital signs: Vital Signs Temp 97.5 F L 12/17/18 08:00 Pulse 72 12/17/18 08:00 Resp 16 12/17/18 08:00 BP 169/81 12/17/18 11:04 Pulse Ox 97 12/17/18 08:00 Intake & Output 12/16/18 12/17/18 12/17/18 18:59 06:59 18:59 Intake Total 480 Balance 480 Intake: Oral 480 Other: Voiding Method Toilet Toilet Toilet # Voids 1 2 - Exam GENERAL: The patient is alert and oriented x3, not in any acute distress. Morbidly obese HEENT: Pupils are round and equally reacting to light. EOMI. No scleral icterus. No conjunctival pallor. Normocephalic, atraumatic. CARDIOVASCULAR: S1 and S2 present. No murmurs, rubs, or gallops. PULMONARY: Chest is clear to auscultation, no wheezing or crackles. ABDOMEN: Soft, nontender, nondistended, normoactive bowel sounds. No palpable organomegaly. MUSCULOSKELETAL: No joint swelling or deformity. EXTREMITIES: No cyanosis, clubbing, or pedal edema. NEUROLOGICAL: Gross neurological examination did not reveal any focal deficits. SKIN: No rashes. - Labs CBC & Chem 7: 12/14/18 14:17 12/14/18 14:17 Labs: Abnormal Lab Results - Last 24 Hours (Table) 12/16/18 Range/Units 06:39 CA 15-3 Antigen 1043.9 H (0.0-32.3) U/mL Assessment and Plan Plan: -Back pain secondary to metastatic disease patient does have radiculopathy no cord compression as per the MRI continue with Decadron. Patient will undergo breast biopsy tomorrow -Possible primary breast cancer biopsy results pending, CEA 15-3 is elevated -Leukocytosis reactive -Morbid obesity Patient will need pharmacologic GI as well as DVT prophylaxis
[2018-12-18] MEDS: DEXAMETHASONE SOD PHOSPHATE 4 MG/ML 1 ML VIAL IV SCH ×4 (05:46→23:10)
[2018-12-18] MEDS: HEPARIN SODIUM,PORCINE 5,000 UNIT/ML 1 ML VIAL SQ SCH ×3 (08:04→23:10)
[2018-12-18] MEDS: KETOROLAC 30 MG/ML 1 ML VIAL IVP PRN ×3 (08:10→23:10)
[2018-12-18] MEDS: SENNOSIDES-DOCUSATE SODIUM 1 EACH TAB PO SCH (08:11)
[2018-12-18] MEDS: FAMOTIDINE 20 MG TAB PO SCH ×2 (08:11→20:13)
[2018-12-18 11:03] LABS: Mean Platelet Volume 6.3; Platelet Count 460 k/uL (150-450)
[2018-12-18 11:19] LABS: Prothrombin Time 10.6 sec (9.0-12.0)
--- NOTE | 2018-12-18 12:36 | USB ---
ULTRASOUND GUIDED FNA THYROID BIOPSY: CLINICAL HISTORY: Left breast mass FINDINGS: The procedure was explained to the patient. The risks, complications, benefits and alternatives were discussed and any questions were answered. Informed consent was obtained. Patient was placed supin e on the ultrasound table and prepped and draped in the usual sterile fashion. Utilizing a 16 gauge needle, 4 passes were made into the left breast mass. Surgical clip placed post procedure. Patient was stable throughout the procedure. Pathology is pending. All elements of maximal barrier and sterile technique were utilized. IMPRESSION: 1. Successful ultrasound guided core biopsy left breast mass.
--- NOTE | 2018-12-18 17:41 | P.PN ---
Subjective Progress Note Date: 12/18/18 Interval history: 63-year-old pleasant gentleman who hasn't seen a doctor that if he is came in with complaints of low back pain has been getting worse for few months much worse for last 3-4 days including difficulty walking although patient denied any localized pain patient has minimal radicular pain to the right groin area denied any saddle anesthesia loss of bowel or bladder incontinence. Patient any fever chills nausea vomiting. Patient had a back x-ray which was suspicious for metastatic disease because of which patient had a CAT scan of the lumbar spine which showed metastatic disease to vertebral bodies of the T12 , L1 without any significant spinal involvement. Patient does have metastatic disease in the lung as well patient is not a smoker never got any screening procedures like colonoscopy or prostate exam in the past. 12/15/2018 CT report suspicion of thecal sac or spinal cord compression at the level of L2 and severe thecal sac compression at the level of S1 in addition to compression fractures of L2 and T8, could not exclude cord contact or compression at T8, L2 or severe nerve root impingement thecal sac compression within the sacrum, Pulmonary nodules-widespread metastasis, large left chest/breast mass.breast biopsy pending. MRA of lumbar spine ordered. 12/16/2018 MRI did not show any chronic compression but did show cervical canal stenosis at the couple areas patient's pain is not well controlled at patient is getting Toradol discussed at length with oncology the recommending breast biopsy before discharge on Tuesday meantime we'll try to control his pain. 12/17/2018 Patient pain is better controlled now patient will undergo breast biopsy tomorrow and evaluation by radiation oncology after which patient probably can be discharged 12/18/2018 awaiting breast biopsy and radiation treatment. Left breast wound noted, nondraining current, infectious disease consulted. Pain controlled on current pain management. Denies chest pain, palpitations or increasing shortness of breath. Constitutional: Denied any fatigue denied any fever. Cardio vascular: denied any chest pain, palpitations Gastrointestinal denied any nausea vomiting Pulmonary: Denied any shortness of breath cough Neurologic denied any new focal deficits All inpatient medications were reviewed and appropriate changes in these medications as dictated in the interval history and assessment and plan. Objective - Vital Signs Vital signs: Vital Signs Temp 98 F 12/18/18 12:30 Pulse 80 12/18/18 13:15 Resp 12 12/18/18 12:30 BP 147/82 12/18/18 13:15 Pulse Ox 98 12/18/18 12:30 Intake & Output 12/17/18 12/18/18 12/18/18 18:59 06:59 18:59 Intake Total 480 Balance 480 Intake: Oral 480 Other: Voiding Method Toilet Toilet # Voids 1 4 - Exam GENERAL: The patient is alert and oriented x3, not in any acute distress. Morbidly obese HEENT: Pupils are round and equally reacting to light. EOMI. No scleral icterus. No conjunctival pallor. Normocephalic, atraumatic. CARDIOVASCULAR: S1 and S2 present. No murmurs, rubs, or gallops. PULMONARY: Chest is clear to auscultation, no wheezing or crackles. ABDOMEN: Soft, nontender, nondistended, normoactive bowel sounds. No palpable organomegaly. MUSCULOSKELETAL: No joint swelling or deformity. EXTREMITIES: No cyanosis, clubbing, or pedal edema. NEUROLOGICAL: Gross neurological examination did not reveal any focal deficits. SKIN: Left breast wound, nondraining. - Labs CBC & Chem 7: 12/18/18 10:39 12/14/18 14:17 Labs: Abnormal Lab Results - Last 24 Hours (Table) 12/18/18 Range/Units 10:39 Plt Count 460 H (150-450) k/uL Assessment and Plan Assessment: -Back pain: Secondary to metastatic disease with unknown primary with some radiculopathy. CT suggestive of spinal cord compression,T8,L2 as mentioned above. MR lumbar spine reporting no cord compression. -Possible left-sided breast cancer, CEA 15-3 elevated, biopsy pending -Leukocytosis reactive -Left breast wound -Morbid obesity Plan continue on current medication regime ,monitoring and symptomatic treatment. Maintain Decadron, Toradol. Breast biopsy and radiation treatment pending. GI and DVT prophylaxis. Infectious disease consulted regarding left breast wound. Prognosis guarded given multiple complex medical issues. Discharge planning in progress pending ID clearance. The impression and plan of care has been dictated as directed. : I performed a history and examination of this patient, discussed the same with the dictator. I agree with the dictator's note ,documented as a scribe. Any additional findings or plans will be noted.
[2018-12-19] MEDS: KETOROLAC 30 MG/ML 1 ML VIAL IVP PRN ×2 (05:37→11:28)
[2018-12-19] MEDS: DEXAMETHASONE SOD PHOSPHATE 4 MG/ML 1 ML VIAL IV SCH ×2 (05:56→11:28)
[2018-12-19 07:23] VITALS: RESP 16
[2018-12-19] MEDS: SENNOSIDES-DOCUSATE SODIUM 1 EACH TAB PO SCH (08:28)
[2018-12-19] MEDS: HEPARIN SODIUM,PORCINE 5,000 UNIT/ML 1 ML VIAL SQ SCH (08:28)
[2018-12-19] MEDS: FAMOTIDINE 20 MG TAB PO SCH (08:29)
--- NOTE | 2018-12-19 13:12 | P.DS ---
Providers Date of admission: 12/14/18 15:28 Attending physician: Oneil Cole Consults: 12/14/18 15:24 Consult Physician Stat Consulting Provider: Marielos Lewis Consult Reason/Comments: Metastatic cancer, new diagnosis Do you want consulting provider notified?: Yes 12/14/18 16:17 Consult Physician Routine Consulting Provider: Iam Figueroa Consult Reason/Comments: metastatic disease to vertibral bodies Do you want consulting provider notified?: Yes 12/18/18 15:17 Consult Physician Routine Consulting Provider: Shaila Mirza Consult Reason/Comments: Breast wound Left Do you want consulting provider notified?: Yes Primary care physician: Stated None Hospital Course: pleasant gentleman who hasn't seen a doctor that if he is came in with complaints of low back pain has been getting worse for few months much worse for last 3-4 days including difficulty walking although patient denied any localized pain patient has minimal radicular pain to the right groin area denied any saddle anesthesia loss of bowel or bladder incontinence. Patient any fever chills nausea vomiting. Patient had a back x-ray which was suspicious for metastatic disease because of which patient had a CAT scan of the lumbar spine which showed metastatic disease to vertebral bodies of the T12 , L1 without any significant spinal involvement. Patient does have metastatic disease in the lung as well patient is not a smoker never got any screening procedures like colonoscopy or prostate exam in the past. 12/15/2018 CT report suspicion of thecal sac or spinal cord compression at the level of L2 and severe thecal sac compression at the level of S1 in addition to compression fractures of L2 and T8, could not exclude cord contact or compression at T8, L2 or severe nerve root impingement thecal sac compression within the sacrum, Pulmonary nodules-widespread metastasis, large left chest/breast mass.breast biopsy pending. MRA of lumbar spine ordered. 12/16/2018 MRI did not show any chronic compression but did show cervical canal stenosis at the couple areas patient's pain is not well controlled at patient is getting Toradol discussed at length with oncology the recommending breast biopsy before discharge on Tuesday meantime we'll try to control his pain. 12/17/2018 Patient pain is better controlled now patient will undergo breast biopsy tomorrow and evaluation by radiation oncology after which patient probably can be discharged 12/18/2018 awaiting breast biopsy and radiation treatment. Left breast wound noted, nondraining current, infectious disease consulted. Pain controlled on current pain management. Denies chest pain, palpitations or increasing shortness of breath. 12/19/2018 Patient did go for radiation today. Patient will be a evaluated by infectious disease regarding local wound care and will be discharged after evaluation. Patient has left breast mass infiltrating the skin forming big ulcerating lesion which may need local wound care. Patient will come back for radiation therapies and patient will follow-up with the oncology as an outpatient for further plan regarding the breast cancer - Exam GENERAL: The patient is alert and oriented x3, not in any acute distress. Morbidly obese HEENT: Pupils are round and equally reacting to light. EOMI. No scleral icterus. No conjunctival pallor. Normocephalic, atraumatic. CARDIOVASCULAR: S1 and S2 present. No murmurs, rubs, or gallops. PULMONARY: Chest is clear to auscultation, no wheezing or crackles. Breast exam as mentioned above ABDOMEN: Soft, nontender, nondistended, normoactive bowel sounds. No palpable organomegaly. MUSCULOSKELETAL: No joint swelling or deformity. EXTREMITIES: No cyanosis, clubbing, or pedal edema. NEUROLOGICAL: Gross neurological examination did not reveal any focal deficits. SKIN: Left breast wound, nondraining. Assessment and Plan Assessment: -Back pain: Secondary to metastatic disease with unknown primary with some radiculopathy. CT suggestive of spinal cord compression,T8,L2 as mentioned above. MR lumbar spine reporting no cord compression. -Possible left-sided breast cancer, CEA 15-3 elevated, biopsy pending -Leukocytosis reactive -Left breast wound -Morbid obesity Patient Condition at Discharge: Fair Plan - Discharge Summary Discharge Rx Participant: Yes New Discharge Prescriptions: New Famotidine [Pepcid] 20 mg PO BID #60 tab Ibuprofen [Motrin] 600 mg PO Q6HR PRN #40 tab PRN Reason: Pain Sennosides-Docusate Sodium [Senokot-S] 1 each PO DAILY tab HYDROcodone/APAP 5-325MG [[place] 5-325] 1 tab PO Q6HR PRN 3 Days #12 tab PRN Reason: Pain Lisinopril [Prinivil] 5 mg PO DAILY #30 tablet Dexamethasone [Decadron] 4 mg PO AC-TID #30 tablet Continue Multivitamins, Thera [Multivitamin (formulary)] 1 tab PO DAILY Aspirin EC [Ecotrin Low Dose] 81 mg PO DAILY Calcium Carbonate [Calcium] 600 mg PO DAILY Discontinued Naproxen Sodium [Aleve] 880 mg PO DAILY PRN PRN Reason: Pain [place] [facility] 4 tab PO DAILY PRN PRN Reason: Pain Discharge Medication List Aspirin EC [Ecotrin Low Dose] 81 mg PO DAILY 12/14/18 [History] Calcium Carbonate [Calcium] 600 mg PO DAILY 12/14/18 [History] Multivitamins, Thera [Multivitamin (formulary)] 1 tab PO DAILY 12/14/18 [History ] Famotidine [Pepcid] 20 mg PO BID #60 tab 12/18/18 [Rx] HYDROcodone/APAP 5-325MG [[place] 5-325] 1 tab PO Q6HR PRN 3 Days #12 tab [Rx] Ibuprofen [Motrin] 600 mg PO Q6HR PRN #40 tab 12/18/18 [Rx] Sennosides-Docusate Sodium [Senokot-S] 1 each PO DAILY tab 12/18/18 [Rx] Dexamethasone [Decadron] 4 mg PO AC-TID #30 tablet 12/19/18 [Rx] Lisinopril [Prinivil] 5 mg PO DAILY #30 tablet 12/19/18 [Rx] Follow up Appointment(s)/Referral(s): Alonso Butler MD [STAFF PHYSICIAN] - 1 Week (office will call with appointment time) Lee Ann Castillo MD [REFERRING] - 3 Days (Patient to call to make appointment) Geoffrey Romano MD [STAFF PHYSICIAN] - 12/19/18 12:30 pm (Patient is aware and was set up for 12/19/2018 at 12:30 12/20/2018 at 12:00) Activity/Diet/Wound Care/Special Instructions: decadron taper as per oncology. Pending wound care as per ID. Pending breast biopsy and radiation oncology DC recommendations Discharge Disposition: HOME SELF-CARE
[2018-12-19] MEDS ORDERED: ZOLEDRONIC ACID 4 MG in SODIUM CHLORIDE 0.9% 100 ML IV ONE (13:15)
[2018-12-19 15:50] VITALS: BP 202/115; PULSE 98; TEMP 97.5
--- NOTE | 2018-12-19 18:56 | CONS ---
CONSULTATION DATE OF SERVICE: 12/19/2018. REASON FOR CONSULTATION: Left breast/chest wall wound. HISTORY OF PRESENT ILLNESS: The patient is a 63-year-old male presenting to the ER at [facility] 12/14/2018 with lower pelvic pain. Patient has pain that was severe, almost 7 to 8 out of 10, with some radiation to the left hip and groin area. With these symptoms, the patient was evaluated by the ER physician. On arrival to the ER, the patient had CT of the lumbosacral spine showed metastatic appearing lesion in the lower T-spine with significant destruction of the sacrum on the left. The patient subsequently has been admitted to the hospital for further workup of the same. The patient apparently did have a fungating wound on his left breast area that has been there for more than a month now. The patient denies significant pain to the area. No significant foul-smelling drainage or surrounding swelling or redness with concern for possible primary breast cancer with secondary metastasis, musculoskeletal disease workup. The patient did have a biopsy of the breast that was done today. Infectious Disease was consulted for local care of his left breast wound. REVIEW OF SYSTEMS: Positive points have been mentioned in HPI. Rest of the systems have been negative. PAST MEDICAL HISTORY: No major illnesses. The patient has not seen a physician for almost 30 years. PAST SURGICAL HISTORY: No major surgeries. SOCIAL HISTORY: Denies smoking, drinking or drug use. FAMILY HISTORY: No pertinent findings noticed. ALLERGIES: No known drug allergies. MEDICATIONS: The patient is currently on Senokot, Zofran, Narcan, morphine sulfate, heparin, Pepcid and Decadron. PHYSICAL EXAMINATION: Blood pressure is 181/121 with a pulse of 88, temperature 98.3. He is 97% on room air. General description is an elderly male lying in bed in no distress. No tachypnea or accessory muscles of respiration use. HEENT: Shows no pallor or scleral icterus. Oral mucosa membranes are dry. No pharyngeal erythema or thrush. Neck trachea central. No thyromegaly. Lungs unlabored breathing. Clear to auscultation anteriorly. No wheeze or crackles. Heart S1, S2. Regular rate and rhythm. ABDOMEN: Soft. No tenderness. Extremities: No edema of the feet. Examination of the left breast in the presence of the RN did show a left lower quadrant wound with no significant slough tissue, no surrounding redness. No foul smelling drainage. NEUROLOGICAL: Patient is awake, alert, oriented times three. Mood and affect normal. LABS: Blood work done on admission not repeated shows hemoglobin 14, white count 12.8 with a BUN of 22, creatinine 0.85. DIAGNOSTIC IMPRESSION AND PLAN: Patient with left breast wound with concern for possible primary breast tumor fungating mass with secondary skeletal metastasis. The wound currently does not look infected with no slough tissue. Hence we will recommend local wound care and no need for any systemic antibiotic therapy. PLAN: 1. Aquacel Silver packing of the wound to be changed q.48 hours. 2. No need for any systematic antibiotic therapy for the same. 3. The patient advised to follow up with the [facility] local wound care if needed. Thank you for this consultation. MMRACHNAL / IJN: [id number] /
== END 2018-12-19 18:07 | disposition home or self-care (01) | DRG 543 ==
LOC: EC 11:21 → 4SSUR 15:28
PROVIDERS: ADMIT Internal Medicine; ATTEND Internal Medicine
PROC: DW061ZZ Beam Radiation of Pelvic Region using Photons 1 - 10 MeV (ICD-10-PCS; 2018-12-15)
PROC: 0HBU3ZX Excision of Left Breast, Percutaneous Approach, Diagnostic (ICD-10-PCS; principal; 2018-12-18)
DX: M84.58XA Pathological fracture in neoplastic disease, other specified site, initial encounter for fracture (principal); Z68.41 Body mass index [BMI] 40.0-44.9, adult; C78.02 Secondary malignant neoplasm of left lung; C78.01 Secondary malignant neoplasm of right lung; C79.51 Secondary malignant neoplasm of bone; E66.01 Morbid (severe) obesity due to excess calories; M48.02 Spinal stenosis, cervical region; C50.922 Malignant neoplasm of unspecified site of left male breast; M54.10 Radiculopathy, site unspecified; G89.3 Neoplasm related pain (acute) (chronic); Z71.3 Dietary counseling and surveillance; Z79.82 Long term (current) use of aspirin; Z79.899 Other long term (current) drug therapy
CPT/HCPCS: 36415; 71046; 71260; 72110; 72131; 72158; 72192; 74177; 77295; 77300; 77334; 77412; 77417; 80053; 81001; 82550; 84153; 85025; 85049; 85610; 86300; 88305; 88341; 88342; 93005; 96372; 96374; 96375; 99285

== ENCOUNTER 2018-12-30 11:23 | Inpatient (IN) | payer OTHER ==
[2018-12-30] MEDS ORDERED: SODIUM CHLORIDE 0.9% 1,000 ML IV STA ×3 (11:36→12:51)
[2018-12-30] MEDS ORDERED: ONDANSETRON 4 MG/2 ML VIAL IVP STA (11:36)
[2018-12-30] MEDS ORDERED: SODIUM CHLORIDE 0.9% 500 ML 500 ML IV STA (11:36)
--- NOTE | 2018-12-30 11:36 | ED ---
Weakness HPI - General Chief complaint: Weakness Stated complaint: NVD, Chest Pain Time Seen by Provider: 12/30/18 11:27 Source: patient, RN notes reviewed, old records reviewed Mode of arrival: wheelchair Limitations: no limitations - History of Present Illness Initial comments: This is a 63-year-old male the ER for evaluation. Patient does say for ev aluation regarding weakness. 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 Unknown primary but metastases to different areas of his bone and spine. Severe pain delirious. No recent travel history no sick contacts. Patient does admit to nausea vomiting and diarrhea. No abdominal pain. No current headaches. He denies any neurological changes. No modifying factors MD Complaint: generalized weakness -: week(s) Location: generalized Severity: moderate Severity scale (1-10): 4 Quality: numbness Consistency: constant, intermittent Improves with: none Worsens with: none Context: new medication Associated Symptoms: nausea/vomiting, myalgias - Related Data Home Medications Medication Instructions Recorded Confirmed Aspirin EC [Ecotrin Low Dose] 81 mg PO DAILY 12/14/18 12/30/18 Calcium Carbonate [Calcium] 600 mg PO DAILY 12/14/18 12/30/18 Multivitamins, Thera [Multivitamin 1 tab PO DAILY 12/14/18 12/30/18 (formulary)] Dexamethasone [Decadron] See Taper PO DIRECTED 12/30/18 12/30/18 Previous Rx's Medication Instructions Recorded Famotidine [Pepcid] 20 mg PO BID #60 tab 12/18/18 HYDROcodone/APAP 5-325MG [[place] 1 tab PO Q6HR PRN 3 Days #12 tab 12/18/18 5-325] Ibuprofen [Motrin] 600 mg PO Q6HR PRN #40 tab 12/18/18 Lisinopril [Prinivil] 5 mg PO DAILY #30 tablet 12/19/18 Allergies Allergy/AdvReac Type Severity Reaction Status Date / Time No Known Allergies Allergy Verified 12/30/18 12:58 Review of Systems ROS Statement: Those systems with pertinent positive or pertinent negative responses have been documented in the HPI. ROS Other: All systems not noted in ROS Statement are negative. Past Medical History Past Medical History: No Reported History Additional Past Medical History / Comment(s): Per pt cancer within spine, chest and breast History of Any Multi-Drug Resistant Organisms: None Reported Past Surgical History: No Surgical Hx Reported Past Anesthesia/Blood Transfusion Reactions: No Reported Reaction Past Psychological History: No Psychological Hx Reported Smoking Status: Never smoker Past Alcohol Use History: None Reported Past Drug Use History: None Reported - Past Family History Father Family Medical History: No Reported History General Exam Limitations: no limitations General appearance: alert, in no apparent distress Head exam: Present: atraumatic, normocephalic, normal inspection Eye exam: Present: normal appearance, PERRL, EOMI. Absent: scleral icterus, conjunctival injection, periorbital swelling ENT exam: Present: normal exam, mucous membranes dry Neck exam: Present: normal inspection. Absent: tenderness, meningismus, lymphadenopathy Respiratory exam: Present: normal lung sounds bilaterally. Absent: respiratory distress, wheezes, rales, rhonchi, stridor Cardiovascular Exam: Present: normal rhythm, tachycardia, normal heart sounds. Absent: systolic murmur, diastolic murmur, rubs, gallop, clicks GI/Abdominal exam: Present: soft, normal bowel sounds. Absent: distended, tenderness, guarding, rebound, rigid Extremities exam: Present: normal inspection, full ROM, normal capillary refill. Absent: tenderness, pedal edema, joint swelling, calf tenderness Back exam: Present: normal inspection Neurological exam: Present: alert, oriented X3, CN II-XII intact Psychiatric exam: Present: normal affect, normal mood Skin exam: Present: warm, dry, intact, normal color. Absent: rash Course Vital Signs 12/30/18 11:29 Temperature 97.8 F Pulse Rate 122 H Respiratory 18 Rate Blood Pressure 82/63 O2 Sat by Pulse 96 Oximetry - Reevaluation(s) Reevaluation #1: 12/30/18 13:46 Medical record is reviewed Reevaluation #2: 12/30/18 13:46 This certainly significantly dehydrated feels weak has no urine output EKG Findings - EKG Comments: EKG Findings:: EKG shows sinus tachycardia rate of 108, ID 1:30, QRS 76, QTc 472 Medical Decision Making - Medical Decision Making 73 male the ER for weakness dehydration nausea vomiting diarrhea. Patient be admitted for IV resuscitation and symptom control - Lab Data Result diagrams: 12/30/18 11:57 12/30/18 11:57 Lab Results 03/16/19 03/16/19 03/16/19 Range/Units 11:57 11:57 11:57 WBC 12.6 H (3.8-10.6) k/uL RBC 6.25 H (4.30-5.90) m/uL Hgb 16.2 (13.0-17.5) gm/dL Hct 52.0 (39.0-53.0) % MCV 83.3 (80.0-100.0) fL MCH 25.9 (25.0-35.0) pg MCHC 31.1 (31.0-37.0) g/dL RDW 15.6 H (11.5-15.5) % Plt Count 252 (150-450) k/uL Neutrophils % 90 % Lymphocytes % 3 % Monocytes % 6 % Eosinophils % 1 % Basophils % 0 % Neutrophils # 11.3 H (1.3-7.7) k/uL Lymphocytes # 0.3 L (1.0-4.8) k/uL Monocytes # 0.8 (0-1.0) k/uL Eosinophils # 0.1 (0-0.7) k/uL Basophils # 0.0 (0-0.2) k/uL Sodium 134 L (137-145) mmol/L Potassium 4.4 (3.5-5.1) mmol/L Chloride 103 (98-107) mmol/L Carbon Dioxide 20 L (22-30) mmol/L Anion Gap 11 mmol/L BUN 40 H (9-20) mg/dL Creatinine 0.80 (0.66-1.25) mg/dL Est GFR (CKD-EPI)AfAm >90 (>60 ml/min/1.73 sqM) Est GFR (CKD-EPI)NonAf >90 (>60 ml/min/1.73 sqM) Glucose 218 H (74-99) mg/dL Plasma Lactic Acid Richard 3.1 H* (0.7-2.0) mmol/L Calcium 7.0 L (8.4-10.2) mg/dL Phosphorus 2.8 (2.5-4.5) mg/dL Magnesium 2.7 H (1.6-2.3) mg/dL Total Bilirubin 1.3 (0.2-1.3) mg/dL AST 57 (17-59) U/L ALT 113 H (21-72) U/L Alkaline Phosphatase 659 H (38-126) U/L Troponin I (0.000-0.034) ng/mL Total Protein 6.3 (6.3-8.2) g/dL Albumin 3.5 (3.5-5.0) g/dL 12/30/18 Range/Units 11:57 WBC (3.8-10.6) k/uL RBC (4.30-5.90) m/uL Hgb (13.0-17.5) gm/dL Hct (39.0-53.0) % MCV (80.0-100.0) fL MCH (25.0-35.0) pg MCHC (31.0-37.0) g/dL RDW (11.5-15.5) % Plt Count (150-450) k/uL Neutrophils % % Lymphocytes % % Monocytes % % Eosinophils % % Basophils % % Neutrophils # (1.3-7.7) k/uL Lymphocytes # (1.0-4.8) k/uL Monocytes # (0-1.0) k/uL Eosinophils # (0-0.7) k/uL Basophils # (0-0.2) k/uL Sodium (137-145) mmol/L Potassium (3.5-5.1) mmol/L Chloride (98-107) mmol/L Carbon Dioxide (22-30) mmol/L Anion Gap mmol/L BUN (9-20) mg/dL Creatinine (0.66-1.25) mg/dL Est GFR (CKD-EPI)AfAm (>60 ml/min/1.73 sqM) Est GFR (CKD-EPI)NonAf (>60 ml/min/1.73 sqM) Glucose (74-99) mg/dL Plasma Lactic Acid Richard (0.7-2.0) mmol/L Calcium (8.4-10.2) mg/dL Phosphorus (2.5-4.5) mg/dL Magnesium (1.6-2.3) mg/dL Total Bilirubin (0.2-1.3) mg/dL AST (17-59) U/L ALT (21-72) U/L Alkaline Phosphatase (38-126) U/L Troponin I <0.012 (0.000-0.034) ng/mL Total Protein (6.3-8.2) g/dL Albumin (3.5-5.0) g/dL Disposition Clinical Impression: Metastatic cancer, Lumbar compression fracture, Weakness, Dehydration Disposition: ADMITTED IP TO THIS [facility] Condition: Good Is patient prescribed a controlled substance at d/c from ED?: No Referrals: None,Stated [Primary Care Provider] - 1-2 days
[2018-12-30 12:31] LABS: Basophils % (A) 0 %; Eosinophils # (A) 0.1 k/uL (0-0.7); Eosinophils % (A) 1 %; HGB 16.2 gm/dL (13.0-17.5); Lymphocytes # (A) 0.3 k/uL (1.0-4.8); Lymphocytes % (A) 3 %; MCH 25.9 pg (25.0-35.0); MCHC 31.1 g/dL (31.0-37.0); MCV 83.3 fL (80.0-100.0); Mean Platelet Volume 6.6; Monocytes # (A) 0.8 k/uL (0-1.0); Monocytes % (A) 6 %; Neutrophils # (A) 11.3 k/uL (1.3-7.7); Neutrophils % (A) 90 %; Platelet Count 252 k/uL (150-450); RBC 6.25 m/uL (4.30-5.90); RDW 15.6 % (11.5-15.5); WBC 12.6 k/uL (3.8-10.6)
[2018-12-30 12:42] LABS: ALT 113 U/L (21-72); AST 57 U/L (17-59); Albumin 3.5 g/dL (3.5-5.0); Alkaline Phosphatase 659 U/L (38-126); Anion Gap 11 mmol/L; Blood Urea Nitrogen 40 mg/dL (9-20); Carbon Dioxide 20 mmol/L (22-30); Chloride 103 mmol/L (98-107); Glucose 218 mg/dL (74-99); Magnesium 2.7 mg/dL (1.6-2.3); Phosphorus 2.8 mg/dL (2.5-4.5); Potassium 4.4 mmol/L (3.5-5.1); Sodium 134 mmol/L (137-145); Total Bilirubin 1.3 mg/dL (0.2-1.3); Total Protein 6.3 g/dL (6.3-8.2)
[2018-12-30] MEDS ORDERED: KETOROLAC 30 MG/ML 1 ML VIAL IVP STA (12:52)
[2018-12-30] MEDS ORDERED: MORPHINE SULFATE 4 MG/ML SYRINGE IVP STA (12:52)
[2018-12-30] MEDS ORDERED: ONDANSETRON 4 MG/2 ML VIAL IVP PRN (13:46)
[2018-12-30] MEDS ORDERED: PANTOPRAZOLE 40 MG/10 ML VIAL IVP STA (13:46)
--- NOTE | 2018-12-30 18:11 | XR ---
EXAMINATION TYPE: XR chest 1V DATE OF EXAM: 12/30/2018 COMPARISON: 12/14/2018 HISTORY: Short of breath TECHNIQUE: Single frontal view of the chest is obtained. FINDINGS: There is no heart failure nor confluent pneumonic infiltrate. There are small calcified gr anuloma in the right lower lobe. There is some mild nodular infiltrate at the lung bases. Heart size is normal. IMPRESSION: Nodular pulmonary infiltrates unchanged compared to last exam. No heart failure.
[2018-12-30] MEDS: HEPARIN SODIUM,PORCINE 5,000 UNIT/ML 1 ML VIAL SQ SCH (23:29)
[2018-12-31 07:36] LABS: Basophils % (A) 0 %; Eosinophils # (A) 0.1 k/uL (0-0.7); Eosinophils % (A) 1 %; HCT 45.1 % (39.0-53.0); HGB 13.8 gm/dL (13.0-17.5); Lymphocytes # (A) 0.3 k/uL (1.0-4.8); Lymphocytes % (A) 4 %; MCH 25.9 pg (25.0-35.0); MCHC 30.6 g/dL (31.0-37.0); MCV 84.7 fL (80.0-100.0); Mean Platelet Volume 6.5; Monocytes # (A) 0.6 k/uL (0-1.0); Monocytes % (A) 7 %; Neutrophils # (A) 7.5 k/uL (1.3-7.7); Neutrophils % (A) 86 %; Platelet Count 173 k/uL (150-450); RBC 5.33 m/uL (4.30-5.90); RDW 15.7 % (11.5-15.5); WBC 8.7 k/uL (3.8-10.6)
[2018-12-31] MEDS: HEPARIN SODIUM,PORCINE 5,000 UNIT/ML 1 ML VIAL SQ SCH ×3 (07:38→23:58)
[2018-12-31 07:48] LABS: ALT 95 U/L (21-72); AST 45 U/L (17-59); Albumin 2.7 g/dL (3.5-5.0); Alkaline Phosphatase 448 U/L (38-126); Anion Gap 4 mmol/L; Blood Urea Nitrogen 25 mg/dL (9-20); Calcium 6.6 mg/dL (8.4-10.2); Carbon Dioxide 23 mmol/L (22-30); Chloride 110 mmol/L (98-107); Glucose 142 mg/dL (74-99); Potassium 4.6 mmol/L (3.5-5.1); Sodium 137 mmol/L (137-145)
[2018-12-31] MEDS ORDERED: PANTOPRAZOLE 40 MG/10 ML VIAL IVP SCH (09:00)
[2018-12-31 11:20] LABS: Amorphous Sediment,Urine Occasional /hpf; Appearance,Urine Clear (Clear); Bacteria,Urine Rare /hpf; Bilirubin,Urine Negative (Negative); Blood,Urine Small (Negative); Color,Urine Yellow; Glucose,Urine (UA) Negative (Negative); Ketones,Urine Trace (Negative); Leukocyte Esterase,Urine Moderate (Negative); Mucus,Urine Occasional /hpf; Nitrite,Urine Negative (Negative); PH, Urine 5.5 (5.0-8.0); Protein,Urine Trace (Negative); Specific Gravity,Urine 1.022 (1.001-1.035); Squamous Epithelial Cell,Urine 1 /hpf (0-4); Urobilinogen,Urine <2.0 mg/dL (<2.0); WBC,Urine 11 /hpf (0-5)
--- NOTE | 2018-12-31 18:23 | P.HPIM ---
History of Present Illness H&P Date: 12/30/18 Chief Complaint: Intractable nausea and vomiting Patient is a 63-year-old male with a known history of recently diagnosed spinal cancer with multiple metastases to spine diagnosed about 2 weeks ago status post radiation completed about a week ago., Left breast mass/nodule status post biopsy awaiting report on follow-up with Dr. Bonilla as an outpatient came to ER with the complaints of nausea vomiting and diarrhea. Patient is unable tolerate oral diet for the past 2 days. Patient is also complaining of severe back pain as well. Denied any fever or chills. Denied any abdominal pain. Denied any focal weakness. No chest pain or shortness of breath. Denied any dysuria or hematuria. He is on aspirin, dexamethasone and Motrin at home for pain. WBC 12.6, lactic acid 3.4, sodium 134, alk phos 659, ALT 113 UA showed moderate leukocyte esterase and 11 WBC cells. Review of Systems Constitutional: Patient denies any fever or chills . Generalized weakness and malaise. Patient does have nausea vomiting and diarrhea. No abdominal pain. He is certainly. Abdomen: Patient does have nausea vomiting and diarrhea. Denied any abdominal pain. No dark-colored stools.. Cardiovascular: Patient denies any chest pain or short of breath no palpitations. Respiratory: patient denied any cough is from production. No shortness of breath Neurologic: Patient denied any numbness or tingling headache. Musculoskeletal: Patient denies any complaints of joint swelling or deformity. Skin: Negative Psychiatric: Negative Endocrine: No heat or cold intolerance. No recent weight gain. Genitourinary: No dysuria or hematuria. All other 14 point ROS negative except the above Past Medical History Past Medical History: Cancer Additional Past Medical History / Comment(s): Per pt cancer within spine, chest and breast History of Any Multi-Drug Resistant Organisms: None Reported Past Surgical History: No Surgical Hx Reported Past Anesthesia/Blood Transfusion Reactions: No Reported Reaction Past Psychological History: No Psychological Hx Reported Smoking Status: Never smoker Past Alcohol Use History: None Reported Past Drug Use History: None Reported - Past Family History Father Family Medical History: No Reported History Additional Family Medical History / Comment(s): ETOH at age of 50 Mother Family Medical History: Cancer Additional Family Medical History / Comment(s): ovarian, past in MVA Medications and Allergies Home Medications Medication Instructions Recorded Confirmed Type Aspirin EC [Ecotrin Low Dose] 81 mg PO DAILY 12/14/18 12/30/18 History Calcium Carbonate [Calcium] 600 mg PO DAILY 12/14/18 12/30/18 History Multivitamins, Thera [Multivitamin 1 tab PO DAILY 12/14/18 12/30/18 History (formulary)] Famotidine [Pepcid] 20 mg PO BID #60 tab 12/18/18 12/30/18 Rx HYDROcodone/APAP 5-325MG [[place] 1 tab PO Q6HR PRN 3 Days #12 tab 12/18/18 12/30/18 Rx 5-325] Ibuprofen [Motrin] 600 mg PO Q6HR PRN #40 tab 12/18/18 12/30/18 Rx Lisinopril [Prinivil] 5 mg PO DAILY #30 tablet 12/19/18 12/30/18 Rx Dexamethasone [Decadron] See Taper PO DIRECTED 12/30/18 12/30/18 History Allergies Allergy/AdvReac Type Severity Reaction Status Date / Time No Known Allergies Allergy Verified 12/30/18 12:58 Physical Exam Vitals: Vital Signs Temp Pulse Pulse Resp BP BP Pulse Ox 12/30/18 15:30 98.0 F 100 18 149/81 99 12/30/18 14:17 99 16 130/83 98 12/30/18 13:30 98 135/82 99 12/30/18 13:00 115 H 152/63 98 12/30/18 12:30 116 H 113/71 98 12/30/18 12:00 112 H 126/71 97 12/30/18 11:29 97.8 F 122 H 18 82/63 96 Intake and Output 12/30/18 12/30/18 12/30/18 06:59 14:59 22:59 Intake Total 2300 Balance 2300 Intake: Amount of Fluid Infused ( 2300 ml) Other: Weight 117.934 kg PHYSICAL EXAMINATION: Patient is lying in the bed comfortably, no acute distress, awake alert and oriented. Feels tired. Lethargic.. HEENT: Normocephalic. Neck is supple. Pupils reactive. Nostrils clear. Oral cavity is moist. Ears reveal no drainage. Neck reveals no JVD, carotid bruits, or thyromegaly. CHEST EXAMINATION: Trachea is central. Symmetrical expansion. Lung alcantar clear to auscultation and percussion. CARDIAC: Normal S1, S2 with no gallops. No murmurs ABDOMEN: Soft. Bowel sounds normal. No organomegaly. No abdominal bruits. Extremities: reveal no edema. No clubbing or cyanosis Neurologically awake, alert, oriented x3 with well-coordinated movements. No focal deficits noted Skin: No rash or skin lesions. Psychiatric: Coperative. Nonsuicidal Musculoskeletal: No joint swelling or deformity. Normal range of motion. Results CBC & Chem 7: 12/31/18 06:53 12/31/18 06:53 Labs: Abnormal Lab Results - Last 24 Hours (Table) 12/30/18 12/30/18 12/30/18 Range/Units 11:57 11:57 11:57 WBC 12.6 H (3.8-10.6) k/uL RBC 6.25 H (4.30-5.90) m/uL RDW 15.6 H (11.5-15.5) % Neutrophils # 11.3 H (1.3-7.7) k/uL Lymphocytes # 0.3 L (1.0-4.8) k/uL Sodium 134 L (137-145) mmol/L Carbon Dioxide 20 L (22-30) mmol/L BUN 40 H (9-20) mg/dL Glucose 218 H (74-99) mg/dL Plasma Lactic Acid Richard 3.1 H* (0.7-2.0) mmol/L Calcium 7.0 L (8.4-10.2) mg/dL Magnesium 2.7 H (1.6-2.3) mg/dL ALT 113 H (21-72) U/L Alkaline Phosphatase 659 H (38-126) U/L Thrombosis Risk Factor Assmnt - DVT/VTE Prophylaxis DVT/VTE Prophylaxis: Pharmacologic Prophylaxis ordered - Choose All That Apply Any of the Below Risk Factors Present?: No Other Risk Factors: Yes Each Risk Factor Represents 2 Points: Age 61-74 years, Malignancy Thrombosis Risk Factor Assessment Total Risk Factor Score: 4 Thrombosis Risk Factor Assessment Level: Moderate Risk Assessment and Plan Assessment: Intractable nausea vomiting and diarrhea possible acute gastroenteritis Lactic acidosis secondary to volume depletion tissue hypoperfusion Recent history of spinal cancer status post radiation one week ago Left breast biopsy awaiting report. On followup with Dr. Luke Hypertension DVT prophylaxis with heparin subcu Morbid obesity BMI 37.3 Plan: Patient be continued on IV hydration, symptomatic management for nausea and vomiting. Current with Protonix. Monitor renal function and lactic acid level repeat. Pain management and follow up closely. As the patient still having diarrhea, will send for C. diff toxin as well. Further conditions based on the clinical course. Prognosis is guarded. Time with Patient: Greater than 30
[2019-01-01] MEDS: HEPARIN SODIUM,PORCINE 5,000 UNIT/ML 1 ML VIAL SQ SCH ×2 (09:04→16:02)
[2019-01-01] MEDS: PANTOPRAZOLE 40 MG TABLET PO SCH (09:05)
[2019-01-01] MEDS: MORPHINE SULFATE 4 MG/ML SYRINGE IVP PRN (11:49)
[2019-01-02] MEDS: HEPARIN SODIUM,PORCINE 5,000 UNIT/ML 1 ML VIAL SQ SCH ×3 (00:31→16:57)
[2019-01-02] MEDS: ASPIRIN 81 MG PO SCH (07:12)
[2019-01-02] MEDS: PANTOPRAZOLE 40 MG TABLET PO SCH (07:12)
[2019-01-02] MEDS: CALCIUM CARBONATE 500 MG CHEWABLE PO SCH (07:15)
[2019-01-02] MEDS: MORPHINE SULFATE 4 MG/ML SYRINGE IVP PRN (08:55)
[2019-01-02] MEDS: MULTIVITAMINS, THERA 1 EACH TAB PO SCH (11:15)
--- NOTE | 2019-01-03 00:48 | P.PN ---
Subjective Progress Note Date: 12/31/18 Principal diagnosis: Intractable nausea vomiting or abdominal pain Diarrhea Urinary tract infection Patient is a 63-year-old male with a known history of recently diagnosed spinal cancer with multiple metastases to spine diagnosed about 2 weeks ago status post radiation completed about a week ago., Left breast mass/nodule status post biopsy awaiting report on follow-up with Dr. Bonilla as an outpatient came to ER with the complaints of nausea vomiting and diarrhea. Patient is unable tolerate oral diet for the past 2 days. Patient is also complaining of severe back pain as well. Denied any fever or chills. Denied any abdominal pain. Denied any focal weakness. No chest pain or shortness of breath. Denied any dysuria or hematuria. He is on aspirin, dexamethasone and Motrin at home for pain. WBC 12.6, lactic acid 3.4, sodium 134, alk phos 659, ALT 113 UA showed moderate leukocyte esterase and 11 WBC cells. 12/31/2018 Patient is still having nausea. Unable to tolerate oral diet. Also having diarrhea. Patient will be started on antibiotics for possible urinary tract infection. Continued on IV hydration and symptomatic management. No fever no chills. No chest pain or shortness of breath. Abdominal pain is improved. Current medications reviewed. Objective - Vital Signs Vital signs: Vital Signs Temp 97.7 F 12/31/18 12:45 Pulse 107 H 12/31/18 15:46 Resp 18 12/31/18 15:46 BP 144/86 12/31/18 12:45 Pulse Ox 99 12/31/18 12:45 Intake & Output 12/30/18 12/31/18 12/31/18 18:59 06:59 18:59 Intake Total 2300 0 Balance 2300 0 Weight 117.934 kg Intake: Amount of Fluid Infused ( 2300 ml) Oral 0 Other: Voiding Method Bedside Commode # Voids 1 2 # Bowel Movements 1 - Exam PHYSICAL EXAMINATION: Patient is lying in the bed comfortably, no acute distress, awake alert and oriented.. HEENT: Normocephalic. Neck is supple. Pupils reactive. Nostrils clear. Oral cavity is moist. Ears reveal no drainage. Neck reveals no JVD, carotid bruits, or thyromegaly. CHEST EXAMINATION: Trachea is central. Symmetrical expansion. Lung alcantar clear to auscultation and percussion. CARDIAC: Normal S1, S2 with no gallops. No murmurs ABDOMEN: Soft. Bowel sounds normal. No organomegaly. No abdominal bruits. Extremities: reveal no edema. No clubbing or cyanosis Neurologically awake, alert, oriented x3 with well-coordinated movements. No focal deficits noted Skin: No rash or skin lesions. Psychiatric: Coperative. Nonsuicidal Musculoskeletal: No joint swelling or deformity. Normal range of motion. - Labs CBC & Chem 7: 12/31/18 06:53 12/31/18 06:53 Labs: Abnormal Lab Results - Last 24 Hours (Table) 12/31/18 12/31/18 12/31/18 Range/Units 06:15 06:53 06:53 MCHC 30.6 L (31.0-37.0) g/dL RDW 15.7 H (11.5-15.5) % Lymphocytes # 0.3 L (1.0-4.8) k/uL Chloride 110 H (98-107) mmol/L BUN 25 H (9-20) mg/dL Creatinine 0.63 L (0.66-1.25) mg/dL Glucose 142 H (74-99) mg/dL Calcium 6.6 L (8.4-10.2) mg/dL ALT 95 H (21-72) U/L Alkaline Phosphatase 448 H (38-126) U/L Total Protein 5.0 L (6.3-8.2) g/dL Albumin 2.7 L (3.5-5.0) g/dL Urine Protein Trace H (Negative) Urine Ketones Trace H (Negative) Urine Blood Small H (Negative) Ur Leukocyte Esterase Moderate H (Negative) Urine WBC 11 H (0-5) /hpf Amorphous Sediment Occasional H (None) /hpf Urine Bacteria Rare H (None) /hpf Urine Mucus Occasional H (None) /hpf Microbiology - Last 24 Hours (Table) 12/31/18 06:15 Urine Culture - Preliminary Urine,Voided Assessment and Plan Assessment: Intractable nausea vomiting and diarrhea possible acute gastroenteritis Lactic acidosis secondary to volume depletion tissue hypoperfusion Acute urinary tract infection Recent history of spinal cancer status post radiation one week ago Left breast biopsy awaiting report. On followup with Dr. Butler Hypertension DVT prophylaxis with heparin subcu Morbid obesity BMI 37.3 Plan: Patient be continued on IV hydration, symptomatic management for nausea and vomiting. Current with Protonix. Lactic acidosis improved.. Pain management and follow up closely. As the patient still having diarrhea, will send for C. diff toxin as well. Further conditions based on the clinical course. Prognosis is guarded. Time with Patient: Greater than 30
--- NOTE | 2019-01-03 00:48 | P.PN ---
Subjective Progress Note Date: 01/01/19 Principal diagnosis: Intractable nausea vomiting or abdominal pain Diarrhea Urinary tract infection Patient is a 63-year-old male with a known history of recently diagnosed spinal cancer with multiple metastases to spine diagnosed about 2 weeks ago status post radiation completed about a week ago., Left breast mass/nodule status post biopsy awaiting report on follow-up with Dr. Bonilla as an outpatient came to ER with the complaints of nausea vomiting and diarrhea. Patient is unable tolerate oral diet for the past 2 days. Patient is also complaining of severe back pain as well. Denied any fever or chills. Denied any abdominal pain. Denied any focal weakness. No chest pain or shortness of breath. Denied any dysuria or hematuria. He is on aspirin, dexamethasone and Motrin at home for pain. WBC 12.6, lactic acid 3.4, sodium 134, alk phos 659, ALT 113 UA showed moderate leukocyte esterase and 11 WBC cells. 12/31/2018 Patient is still having nausea. Unable to tolerate oral diet. Also having diarrhea. Patient will be started on antibiotics for possible urinary tract infection. Continued on IV hydration and symptomatic management. No fever no chills. No chest pain or shortness of breath. Abdominal pain is improved. 01/01/2019 Slight improvement in nausea and started tolerating oral diet. We will advance as tolerated. Otherwise patient continues to have diarrhea. C. diff toxin is negative. Urine culture showed gram-negative bacilli. Final culture report is pending. Continued on symptomatic management. No fever no chills. No abdominal pain. No other acute overnight issues. Current medications reviewed. Objective - Vital Signs Vital signs: Vital Signs Temp 99.0 F 01/01/19 13:05 Pulse 101 H 01/01/19 13:05 Resp 20 01/01/19 13:05 BP 131/69 01/01/19 13:05 Pulse Ox 97 01/01/19 13:05 Intake & Output 01/01/19 01/01/19 01/02/19 06:59 18:59 06:59 Other: # Voids 2 2 # Bowel Movements 2 3 - Exam PHYSICAL EXAMINATION: Patient is lying in the bed comfortably, no acute distress, awake alert and oriented.. HEENT: Normocephalic. Neck is supple. Pupils reactive. Nostrils clear. Oral cavity is moist. Ears reveal no drainage. Neck reveals no JVD, carotid bruits, or thyromegaly. CHEST EXAMINATION: Trachea is central. Symmetrical expansion. Lung alcantar clear to auscultation and percussion. CARDIAC: Normal S1, S2 with no gallops. No murmurs ABDOMEN: Soft. Bowel sounds normal. No organomegaly. No abdominal bruits. Extremities: reveal no edema. No clubbing or cyanosis Neurologically awake, alert, oriented x3 with well-coordinated movements. No focal deficits noted Skin: No rash or skin lesions. Psychiatric: Coperative. Nonsuicidal Musculoskeletal: No joint swelling or deformity. Normal range of motion. - Labs CBC & Chem 7: 12/31/18 06:53 12/31/18 06:53 Labs: Microbiology - Last 24 Hours (Table) 12/31/18 06:15 Urine Culture - Preliminary Urine,Voided Gram Neg Bacilli Assessment and Plan Assessment: Intractable nausea vomiting and diarrhea possible acute gastroenteritis Lactic acidosis secondary to volume depletion tissue hypoperfusion Acute urinary tract infection Recent history of spinal cancer status post radiation one week ago Left breast biopsy awaiting report. On followup with Dr. Butler Hypertension DVT prophylaxis with heparin subcu Morbid obesity BMI 37.3 Plan: Patient be continued on IV hydration, symptomatic management for nausea and vomiting. Current with Protonix. Lactic acidosis improved.. Pain management and follow up closely. As the patient still having diarrhea, will send for C. diff toxin as well. Further conditions based on the clinical course. Prognosis is guarded. Time with Patient: Greater than 30
--- NOTE | 2019-01-03 00:50 | P.PN ---
Subjective Progress Note Date: 01/02/19 Principal diagnosis: Intractable nausea vomiting or abdominal pain Diarrhea Urinary tract infection Patient is a 63-year-old male with a known history of recently diagnosed spinal cancer with multiple metastases to spine diagnosed about 2 weeks ago status post radiation completed about a week ago., Left breast mass/nodule status post biopsy awaiting report on follow-up with Dr. Bonilla as an outpatient came to ER with the complaints of nausea vomiting and diarrhea. Patient is unable tolerate oral diet for the past 2 days. Patient is also complaining of severe back pain as well. Denied any fever or chills. Denied any abdominal pain. Denied any focal weakness. No chest pain or shortness of breath. Denied any dysuria or hematuria. He is on aspirin, dexamethasone and Motrin at home for pain. WBC 12.6, lactic acid 3.4, sodium 134, alk phos 659, ALT 113 UA showed moderate leukocyte esterase and 11 WBC cells. 12/31/2018 Patient is still having nausea. Unable to tolerate oral diet. Also having diarrhea. Patient will be started on antibiotics for possible urinary tract infection. Continued on IV hydration and symptomatic management. No fever no chills. No chest pain or shortness of breath. Abdominal pain is improved. 01/01/2019 Slight improvement in nausea and started tolerating oral diet. We will advance as tolerated. Otherwise patient continues to have diarrhea. C. diff toxin is negative. Urine culture showed gram-negative bacilli. Final culture report is pending. Continued on symptomatic management. No fever no chills. No abdominal pain. No other acute overnight issues. 01/02/2019 Patient is able to eat her breakfast today. Still having diarrhea otherwise. No complaints of abdominal pain. No nausea no vomiting. Urine culture showed E. coli and Klebsiella. Continued on ceftriaxone. Anticipate discharge with improvement in diarrhea. C. diff toxin is negative. No fever no chills. No chest pain or shortness of breath. Current medications reviewed. Objective - Vital Signs Vital signs: Vital Signs Temp 97.7 F 01/02/19 14:06 Pulse 101 H 01/02/19 14:06 Resp 18 01/02/19 14:06 BP 111/63 01/02/19 14:06 Pulse Ox 95 01/02/19 14:06 Intake & Output 01/02/19 01/02/19 01/03/19 06:59 18:59 06:59 Intake Total 450 1200 Balance 450 1200 Intake: Oral 450 1200 Other: Voiding Method Bedside Commode Bedside Commode # Voids 1 2 # Bowel Movements 1 1 - Exam PHYSICAL EXAMINATION: Patient is lying in the bed comfortably, no acute distress, awake alert and oriented.. HEENT: Normocephalic. Neck is supple. Pupils reactive. Nostrils clear. Oral cavity is moist. Ears reveal no drainage. Neck reveals no JVD, carotid bruits, or thyromegaly. CHEST EXAMINATION: Trachea is central. Symmetrical expansion. Lung alcantar clear to auscultation and percussion. CARDIAC: Normal S1, S2 with no gallops. No murmurs ABDOMEN: Soft. Bowel sounds normal. No organomegaly. No abdominal bruits. Extremities: reveal no edema. No clubbing or cyanosis Neurologically awake, alert, oriented x3 with well-coordinated movements. No focal deficits noted Skin: No rash or skin lesions. Psychiatric: Coperative. Nonsuicidal Musculoskeletal: No joint swelling or deformity. Normal range of motion. - Labs CBC & Chem 7: 12/31/18 06:53 12/31/18 06:53 Labs: Microbiology - Last 24 Hours (Table) 12/31/18 06:15 Urine Culture - Final Urine,Voided Klebsiella pneumoniae Escherichia coli Assessment and Plan Assessment: Intractable nausea vomiting and diarrhea possible acute gastroenteritis Lactic acidosis secondary to volume depletion tissue hypoperfusion Acute urinary tract infection Recent history of spinal cancer status post radiation one week ago Left breast biopsy awaiting report. On followup with Dr. Butler Hypertension DVT prophylaxis with heparin subcu Morbid obesity BMI 37.3 Plan: Patient be continued on IV hydration, symptomatic management for nausea and vomiting. Current with Protonix. Lactic acidosis improved.. Pain management and follow up closely. As the patient still having diarrhea, will send for C. diff toxin as well. Further conditions based on the clinical course. Prognosis is guarded. Time with Patient: Greater than 30
[2019-01-03] MEDS: HEPARIN SODIUM,PORCINE 5,000 UNIT/ML 1 ML VIAL SQ SCH ×4 (03:08→23:33)
[2019-01-03] MEDS: CALCIUM CARBONATE 500 MG CHEWABLE PO SCH (07:04)
[2019-01-03] MEDS: ASPIRIN 81 MG PO SCH (07:04)
[2019-01-03] MEDS: MULTIVITAMINS, THERA 1 EACH TAB PO SCH (07:04)
[2019-01-03] MEDS: PANTOPRAZOLE 40 MG TABLET PO SCH (07:04)
[2019-01-04] MEDS: HEPARIN SODIUM,PORCINE 5,000 UNIT/ML 1 ML VIAL SQ SCH ×3 (07:21→23:09)
[2019-01-04] MEDS: PANTOPRAZOLE 40 MG TABLET PO SCH (07:21)
[2019-01-04] MEDS: CALCIUM CARBONATE 500 MG CHEWABLE PO SCH (07:21)
[2019-01-04] MEDS: ASPIRIN 81 MG PO SCH (07:21)
[2019-01-04] MEDS: MULTIVITAMINS, THERA 1 EACH TAB PO SCH (10:31)
[2019-01-04] MEDS: LACTOBACILLUS ACIDOPH & BULGAR 1 EACH PACKET PO SCH ×2 (10:31→20:27)
[2019-01-04 11:28] LABS: Basophils % (A) 1 %; Eosinophils # (A) 0.3 k/uL (0-0.7); Eosinophils % (A) 5 %; HCT 40.6 % (39.0-53.0); Lymphocytes # (A) 0.6 k/uL (1.0-4.8); Lymphocytes % (A) 11 %; MCH 26.3 pg (25.0-35.0); MCHC 32.1 g/dL (31.0-37.0); Mean Platelet Volume 6.5; Monocytes # (A) 0.3 k/uL (0-1.0); Monocytes % (A) 6 %; Neutrophils # (A) 4.2 k/uL (1.3-7.7); Neutrophils % (A) 75 %; Platelet Count 165 k/uL (150-450); RBC 4.95 m/uL (4.30-5.90); RDW 15.7 % (11.5-15.5); WBC 5.6 k/uL (3.8-10.6)
[2019-01-04 11:41] LABS: Anion Gap 9 mmol/L; Blood Urea Nitrogen 12 mg/dL (9-20); Calcium 7.5 mg/dL (8.4-10.2); Carbon Dioxide 24 mmol/L (22-30); Chloride 105 mmol/L (98-107); Glucose 157 mg/dL (74-99); Potassium 2.8 mmol/L (3.5-5.1); Sodium 138 mmol/L (137-145)
[2019-01-04] MEDS ORDERED: Potassium Replacement Protocol 1 EACH MISC MISCELLANE PRN (12:12)
[2019-01-04] MEDS: POTASSIUM CHLORIDE ER 20 MEQ TAB.ER PO SCH ×7 (12:23→23:10)
[2019-01-04] MEDS: MORPHINE SULFATE 4 MG/ML SYRINGE IVP PRN (23:09)
--- NOTE | 2019-01-05 00:29 | P.PN ---
Subjective Progress Note Date: 01/03/19 Principal diagnosis: Intractable nausea vomiting or abdominal pain Diarrhea Urinary tract infection Patient is a 63-year-old male with a known history of recently diagnosed spinal cancer with multiple metastases to spine diagnosed about 2 weeks ago status post radiation completed about a week ago., Left breast mass/nodule status post biopsy awaiting report on follow-up with Dr. Bonilla as an outpatient came to ER with the complaints of nausea vomiting and diarrhea. Patient is unable tolerate oral diet for the past 2 days. Patient is also complaining of severe back pain as well. Denied any fever or chills. Denied any abdominal pain. Denied any focal weakness. No chest pain or shortness of breath. Denied any dysuria or hematuria. He is on aspirin, dexamethasone and Motrin at home for pain. WBC 12.6, lactic acid 3.4, sodium 134, alk phos 659, ALT 113 UA showed moderate leukocyte esterase and 11 WBC cells. 12/31/2018 Patient is still having nausea. Unable to tolerate oral diet. Also having diarrhea. Patient will be started on antibiotics for possible urinary tract infection. Continued on IV hydration and symptomatic management. No fever no chills. No chest pain or shortness of breath. Abdominal pain is improved. 01/01/2019 Slight improvement in nausea and started tolerating oral diet. We will advance as tolerated. Otherwise patient continues to have diarrhea. C. diff toxin is negative. Urine culture showed gram-negative bacilli. Final culture report is pending. Continued on symptomatic management. No fever no chills. No abdominal pain. No other acute overnight issues. 01/02/2019 Patient is able to eat her breakfast today. Still having diarrhea otherwise. No complaints of abdominal pain. No nausea no vomiting. Urine culture showed E. coli and Klebsiella. Continued on ceftriaxone. Anticipate discharge with improvement in diarrhea. C. diff toxin is negative. No fever no chills. No chest pain or shortness of breath. 01/03/2019 Patient is able to tolerate oral diet. Still having loose stools but improved consistency. Patient be continued on probiotics and antibiotics the form of ceftriaxone for UTI. Otherwise no fever no chills. No nausea vomiting or abdominal pain. Anticipate discharge once diarrhea improves. Current medications reviewed. Objective - Vital Signs Vital signs: Vital Signs Temp 97.9 F 01/03/19 14:29 Pulse 99 01/03/19 14:29 Resp 16 01/03/19 14:29 BP 149/65 01/03/19 14:29 Pulse Ox 98 01/03/19 14:29 Intake & Output 01/03/19 01/03/19 01/04/19 06:59 18:59 06:59 Intake Total 500 1200 Balance 500 1200 Intake: Oral 500 1200 Other: Voiding Method Bedside Commode Bedside Commode # Voids 1 1 # Bowel Movements 1 1 - Exam PHYSICAL EXAMINATION: Patient is lying in the bed comfortably, no acute distress, awake alert and mateus ented.. HEENT: Normocephalic. Neck is supple. Pupils reactive. Nostrils clear. Oral cavity is moist. Ears reveal no drainage. Neck reveals no JVD, carotid bruits, or thyromegaly. CHEST EXAMINATION: Trachea is central. Symmetrical expansion. Lung alcantar clear to auscultation and percussion. CARDIAC: Normal S1, S2 with no gallops. No murmurs ABDOMEN: Soft. Bowel sounds normal. No organomegaly. No abdominal bruits. Extremities: reveal no edema. No clubbing or cyanosis Neurologically awake, alert, oriented x3 with well-coordinated movements. No focal deficits noted Skin: No rash or skin lesions. Psychiatric: Coperative. Nonsuicidal Musculoskeletal: No joint swelling or deformity. Normal range of motion. - Labs CBC & Chem 7: 01/04/19 11:17 01/04/19 20:04 Assessment and Plan Assessment: Intractable nausea vomiting and diarrhea possible acute gastroenteritis Lactic acidosis secondary to volume depletion tissue hypoperfusion Acute urinary tract infection Recent history of spinal cancer status post radiation one week ago Left breast biopsy awaiting report. On followup with Dr. Butler Hypertension DVT prophylaxis with heparin subcu Morbid obesity BMI 37.3 Plan: Patient be continued on IV hydration, symptomatic management for nausea and vomiting. Current with Protonix. Lactic acidosis improved.. Pain management and follow up closely. As the patient still having diarrhea, will send for C. diff toxin as well. Further conditions based on the clinical course. Prognosis is guarded. Time with Patient: Greater than 30
--- NOTE | 2019-01-05 00:31 | P.PN ---
Subjective Progress Note Date: 01/04/19 Principal diagnosis: Intractable nausea vomiting or abdominal pain Diarrhea Urinary tract infection Patient is a 63-year-old male with a known history of recently diagnosed spinal cancer with multiple metastases to spine diagnosed about 2 weeks ago status post radiation completed about a week ago., Left breast mass/nodule status post biopsy awaiting report on follow-up with Dr. Bonilla as an outpatient came to ER with the complaints of nausea vomiting and diarrhea. Patient is unable tolerate oral diet for the past 2 days. Patient is also complaining of severe back pain as well. Denied any fever or chills. Denied any abdominal pain. Denied any focal weakness. No chest pain or shortness of breath. Denied any dysuria or hematuria. He is on aspirin, dexamethasone and Motrin at home for pain. WBC 12.6, lactic acid 3.4, sodium 134, alk phos 659, ALT 113 UA showed moderate leukocyte esterase and 11 WBC cells. 12/31/2018 Patient is still having nausea. Unable to tolerate oral diet. Also having diarrhea. Patient will be started on antibiotics for possible urinary tract infection. Continued on IV hydration and symptomatic management. No fever no chills. No chest pain or shortness of breath. Abdominal pain is improved. 01/01/2019 Slight improvement in nausea and started tolerating oral diet. We will advance as tolerated. Otherwise patient continues to have diarrhea. C. diff toxin is negative. Urine culture showed gram-negative bacilli. Final culture report is pending. Continued on symptomatic management. No fever no chills. No abdominal pain. No other acute overnight issues. 01/02/2019 Patient is able to eat her breakfast today. Still having diarrhea otherwise. No complaints of abdominal pain. No nausea no vomiting. Urine culture showed E. coli and Klebsiella. Continued on ceftriaxone. Anticipate discharge with improvement in diarrhea. C. diff toxin is negative. No fever no chills. No chest pain or shortness of breath. 01/03/2019 Patient is able to tolerate oral diet. Still having loose stools but improved consistency. Patient be continued on probiotics and antibiotics the form of ceftriaxone for UTI. Otherwise no fever no chills. No nausea vomiting or abdominal pain. Anticipate discharge once diarrhea improves. 01/04/2019 Diarrhea is improving slowly. Patient is hypokalemic this morning at 2.9. Stool is more formed. Stool studies are pending. C. diff negative. FOBT is positive but hemoglobin is stable. Otherwise patient is tolerating oral diet and clinically improving. Anticipate discharge in next 24 hours. Current medications reviewed. Objective - Vital Signs Vital signs: Vital Signs Temp 97.7 F 01/04/19 15:02 Pulse 103 H 01/04/19 15:02 Resp 18 01/04/19 16:00 BP 99/59 01/04/19 15:02 Pulse Ox 97 01/04/19 15:02 Intake & Output 01/04/19 01/04/19 01/05/19 06:59 18:59 06:59 Intake Total 600 Balance 600 Intake: Oral 600 Other: Voiding Method Bedside Commode Toilet Bedside Commode # Voids 1 1 1 # Bowel Movements 1 1 - Exam PHYSICAL EXAMINATION: Patient is lying in the bed comfortably, no acute distress, awake alert and oriented.. HEENT: Normocephalic. Neck is supple. Pupils reactive. Nostrils clear. Oral cavity is moist. Ears reveal no drainage. Neck reveals no JVD, carotid bruits, or thyromegaly. CHEST EXAMINATION: Trachea is central. Symmetrical expansion. Lung alcantar clear to auscultation and percussion. CARDIAC: Normal S1, S2 with no gallops. No murmurs ABDOMEN: Soft. Bowel sounds normal. No organomegaly. No abdominal bruits. Extremities: reveal no edema. No clubbing or cyanosis Neurologically awake, alert, oriented x3 with well-coordinated movements. No focal deficits noted Skin: No rash or skin lesions. Psychiatric: Coperative. Nonsuicidal Musculoskeletal: No joint swelling or deformity. Normal range of motion. - Labs CBC & Chem 7: 01/04/19 11:17 01/04/19 20:04 Labs: Abnormal Lab Results - Last 24 Hours (Table) 01/04/19 01/04/19 01/04/19 Range/Units 11:17 11:17 15:48 RDW 15.7 H (11.5-15.5) % Lymphocytes # 0.6 L (1.0-4.8) k/uL Potassium 2.8 L 3.3 L (3.5-5.1) mmol/L Creatinine 0.38 L (0.66-1.25) mg/dL Glucose 157 H (74-99) mg/dL Calcium 7.5 L (8.4-10.2) mg/dL 01/04/19 Range/Units 20:04 RDW (11.5-15.5) % Lymphocytes # (1.0-4.8) k/uL Potassium 3.4 L (3.5-5.1) mmol/L Creatinine (0.66-1.25) mg/dL Glucose (74-99) mg/dL Calcium (8.4-10.2) mg/dL Microbiology - Last 24 Hours (Table) 01/04/19 14:07 Stool Culture - Preliminary Stool Assessment and Plan Assessment: Intractable nausea vomiting and diarrhea possible acute gastroenteritis vs recen t radiation therapy.. Improving slowly Lactic acidosis secondary to volume depletion tissue hypoperfusion Acute urinary tract infection with E. coli and Klebsiella Recent history of spinal cancer status post radiation one week ago Left breast biopsy awaiting report. On followup with Dr. Butler Hypertension DVT prophylaxis with heparin subcu Morbid obesity BMI 37.3 Plan: Patient be continued on IV hydration, symptomatic management for nausea and vomiting. Current with Protonix. Lactic acidosis improved.. Pain management and follow up closely. C. diff toxin is negative. Monitor H&H.. Further conditions based on the clinical course. Prognosis is guarded. Time with Patient: Greater than 30
[2019-01-05 06:58] VITALS: RESP 16
[2019-01-05] MEDS: HEPARIN SODIUM,PORCINE 5,000 UNIT/ML 1 ML VIAL SQ SCH ×2 (09:14→16:06)
[2019-01-05] MEDS: LACTOBACILLUS ACIDOPH & BULGAR 1 EACH PACKET PO SCH (09:14)
[2019-01-05] MEDS: ASPIRIN 81 MG PO SCH (09:14)
[2019-01-05] MEDS: MULTIVITAMINS, THERA 1 EACH TAB PO SCH (09:14)
[2019-01-05] MEDS: PANTOPRAZOLE 40 MG TABLET PO SCH (09:14)
[2019-01-05] MEDS: CALCIUM CARBONATE 500 MG CHEWABLE PO SCH (09:17)
[2019-01-05 10:33] VITALS: BMI 37.3
[2019-01-05 14:41] VITALS: BP 132/70; PULSE 98; TEMP 97.8
--- NOTE | 2019-01-05 16:38 | P.DS ---
Providers Date of admission: 12/30/18 13:47 Expected date of discharge: 01/05/19 Attending physician: Lesa Constantino Primary care physician: Stated None Hospital Course: Intractable nausea vomiting or abdominal pain Diarrhea Urinary tract infection Patient is a 63-year-old male with a known history of recently diagnosed spinal cancer with multiple metastases to spine diagnosed about 2 weeks ago status post radiation completed about a week ago., Left breast mass/nodule status post biopsy awaiting report on follow-up with Dr. Bonilla as an outpatient came to ER with the complaints of nausea vomiting and diarrhea. Patient is unable tolerate oral diet for the past 2 days. Patient is also complaining of severe back pain as well. Denied any fever or chills. Denied any abdominal pain. Denied any focal weakness. No chest pain or shortness of breath. Denied any dysuria or hematuria. He is on aspirin, dexamethasone and Motrin at home for pain. WBC 12.6, lactic acid 3.4, sodium 134, alk phos 659, ALT 113 UA showed moderate leukocyte esterase and 11 WBC cells. 12/31/2018 Patient is still having nausea. Unable to tolerate oral diet. Also having diarrhea. Patient will be started on antibiotics for possible urinary tract in fection. Continued on IV hydration and symptomatic management. No fever no chills. No chest pain or shortness of breath. Abdominal pain is improved. 01/01/2019 Slight improvement in nausea and started tolerating oral diet. We will advance as tolerated. Otherwise patient continues to have diarrhea. C. diff toxin is negative. Urine culture showed gram-negative bacilli. Final culture report is pending. Continued on symptomatic management. No fever no chills. No abdominal pain. No other acute overnight issues. 01/02/2019 Patient is able to eat her breakfast today. Still having diarrhea otherwise. No complaints of abdominal pain. No nausea no vomiting. Urine culture showed E. coli and Klebsiella. Continued on ceftriaxone. Anticipate discharge with improvement in diarrhea. C. diff toxin is negative. No fever no chills. No chest pain or shortness of breath. 01/03/2019 Patient is able to tolerate oral diet. Still having loose stools but improved consistency. Patient be continued on probiotics and antibiotics the form of ceftriaxone for UTI. Otherwise no fever no chills. No nausea vomiting or abdominal pain. Anticipate discharge once diarrhea improves. 01/04/2019 Diarrhea is improving slowly. Patient is hypokalemic this morning at 2.9. Stool is more formed. Stool studies are pending. C. diff negative. FOBT is positive but hemoglobin is stable. Otherwise patient is tolerating oral diet and clinically improving. Anticipate discharge in next 24 hours. Patient Condition at Discharge: Good Plan - Discharge Summary Discharge Rx Participant: Yes New Discharge Prescriptions: Continue Multivitamins, Thera [Multivitamin (formulary)] 1 tab PO DAILY Aspirin EC [Ecotrin Low Dose] 81 mg PO DAILY Calcium Carbonate [Calcium] 600 mg PO DAILY Famotidine [Pepcid] 20 mg PO BID #60 tab Ibuprofen [Motrin] 600 mg PO Q6HR PRN #40 tab PRN Reason: Pain HYDROcodone/APAP 5-325MG [[place] 5-325] 1 tab PO Q6HR PRN 3 Days #12 tab PRN Reason: Pain Lisinopril [Prinivil] 5 mg PO DAILY #30 tablet Dexamethasone [Decadron] See Taper PO DIRECTED Discharge Medication List Aspirin EC [Ecotrin Low Dose] 81 mg PO DAILY 12/14/18 [History] Calcium Carbonate [Calcium] 600 mg PO DAILY 12/14/18 [History] Multivitamins, Thera [Multivitamin (formulary)] 1 tab PO DAILY 12/14/18 [History] Famotidine [Pepcid] 20 mg PO BID #60 tab 12/18/18 [Rx] HYDROcodone/APAP 5-325MG [[place] 5-325] 1 tab PO Q6HR PRN 3 Days #12 tab 12/18/18 [Rx] Ibuprofen [Motrin] 600 mg PO Q6HR PRN #40 tab 12/18/18 [Rx] Lisinopril [Prinivil] 5 mg PO DAILY #30 tablet 12/19/18 [Rx] Dexamethasone [Decadron] See Taper PO DIRECTED 12/30/18 [History] Follow up Appointment(s)/Referral(s): None,Stated [Primary Care Provider] - 1-2 days Patient Instructions/Handouts: Urinary Tract Infection in Men (DC), Ga stroenteritis (DC) Discharge Disposition: HOME SELF-CARE
== END 2019-01-05 17:06 | disposition home or self-care (01) | DRG 690 ==
LOC: EC 11:23 → 3NMEDONC 13:47 → 4MS4W 01-01 06:53
PROVIDERS: ADMIT Hospitalist; ATTEND Hospitalist
DX: N39.0 Urinary tract infection, site not specified (principal); C79.51 Secondary malignant neoplasm of bone; M48.56XA Collapsed vertebra, not elsewhere classified, lumbar region, initial encounter for fracture; E86.0 Dehydration; T66.XXXA Radiation sickness, unspecified, initial encounter; B96.20 Unspecified Escherichia coli [E. coli] as the cause of diseases classified elsewhere; C80.1 Malignant (primary) neoplasm, unspecified; E66.01 Morbid (severe) obesity due to excess calories; E87.6 Hypokalemia; K52.9 Noninfective gastroenteritis and colitis, unspecified; N63.20 Unspecified lump in the left breast, unspecified quadrant; Z68.37 Body mass index [BMI] 37.0-37.9, adult; Z79.82 Long term (current) use of aspirin; Z79.899 Other long term (current) drug therapy; Z92.3 Personal history of irradiation; Z79.1 Long term (current) use of non-steroidal anti-inflammatories (NSAID); Z79.891 Long term (current) use of opiate analgesic
CPT/HCPCS: 36415; 71045; 80048; 80053; 81001; 82272; 83605; 83735; 84100; 84132; 84484; 85025; 87045; 87046; 87077; 87086; 87177; 87186; 87207; 87209; 87324; 93005; 94760; 96361; 96374; 96375; 99285

== ENCOUNTER 2019-02-08 14:11 | Inpatient (IN) | payer OTHER ==
[2019-02-08] MEDS ORDERED: ONDANSETRON 4 MG/2 ML VIAL IVP STA (14:51)
[2019-02-08] MEDS ORDERED: SODIUM CHLORIDE 0.9% 500 ML 500 ML IV STA (14:51)
[2019-02-08] MEDS ORDERED: PANTOPRAZOLE 40 MG/10 ML VIAL IVP STA (14:51)
[2019-02-08] MEDS ORDERED: SODIUM CHLORIDE 0.9% 1,000 ML IV STA (14:51)
[2019-02-08] MEDS ORDERED: ONDANSETRON 4 MG/2 ML VIAL IVP PRN (15:28)
[2019-02-08 15:31] LABS: Anisocytosis Slight; Basophils # (A) 0.1 k/uL (0-0.2); Basophils % (A) 1 %; Eosinophils % (A) 0 %; HCT 39.2 % (39.0-53.0); HGB 12.4 gm/dL (13.0-17.5); Hypochromasia Moderate; Lymphocytes # (A) 1.2 k/uL (1.0-4.8); Lymphocytes % (A) 11 %; MCH 26.8 pg (25.0-35.0); MCHC 31.7 g/dL (31.0-37.0); MCV 84.7 fL (80.0-100.0); Mean Platelet Volume 6.5; Monocytes # (A) 0.7 k/uL (0-1.0); Monocytes % (A) 6 %; Neutrophils # (A) 9.4 k/uL (1.3-7.7); Neutrophils % (A) 80 %; Poikilocytosis Slight; RBC 4.62 m/uL (4.30-5.90); RDW 16.5 % (11.5-15.5); WBC 11.8 k/uL (3.8-10.6)
--- NOTE | 2019-02-08 15:33 | ED ---
GI Bleed HPI - General Chief complaint: GI Bleed Stated complaint: weakness/blood in stool-cancer pt Time Seen by Provider: 02/08/19 14:51 Source: patient, RN notes reviewed, old records reviewed Mode of arrival: wheelchair Limitations: no limitations - History of Present Illness Initial comments: This is a 63-year-old male the ER for evaluation. This patient does say for evaluation of GI bleed. Dark tarry stools. Weakness lightheadedness and episode of syncope today. Patient denies any pain no abdominal pain no nausea vomiting. No prior colonoscopy history MD complaint: blood streaked emesis, melena, blood streaked stool -: days(s) Radiation: none Severity scale (1-10): 7 Quality: painless Consistency: constant Improves with: none Worsens with: none Context: history of GI bleed Associated Symptoms: nausea, shortness of breath, weakness - Related Data Home Medications Medication Instructions Recorded Confirmed Aspirin EC [Ecotrin Low Dose] 81 mg PO DAILY 12/14/18 12/30/18 Calcium Carbonate [Calcium] 600 mg PO DAILY 12/14/18 12/30/18 Multivitamins, Thera [Multivitamin 1 tab PO DAILY 12/14/18 12/30/18 (formulary)] Dexamethasone [Decadron] See Taper PO DIRECTED 12/30/18 12/30/18 Previous Rx's Medication Instructions Recorded Famotidine [Pepcid] 20 mg PO BID #60 tab 12/18/18 HYDROcodone/APAP 5-325MG [[place] 1 tab PO Q6HR PRN 3 Days #12 tab 12/18/18 5-325] Ibuprofen [Motrin] 600 mg PO Q6HR PRN #40 tab 12/18/18 Lisinopril [Prinivil] 5 mg PO DAILY #30 tablet 12/19/18 Allergies Allergy/AdvReac Type Severity Reaction Status Date / Time No Known Allergies Allergy Verified 02/08/19 15:21 Review of Systems ROS Statement: Those systems with pertinent positive or pertinent negative responses have been documented in the HPI. ROS Other: All systems not noted in ROS Statement are negative. Past Medical History Past Medical History: Cancer Additional Past Medical History / Comment(s): Per pt cancer within spine, chest and breast History of Any Multi-Drug Resistant Organisms: None Reported Past Surgical History: No Surgical Hx Reported Past Anesthesia/Blood Transfusion Reactions: No Reported Reaction Past Psychological History: No Psychological Hx Reported Smoking Status: Never smoker Past Alcohol Use History: None Reported Past Drug Use History: None Reported - Past Family History Father Family Medical History: No Reported History Additional Family Medical History / Comment(s): ETOH at age of 50 Mother Family Medical History: Cancer Additional Family Medical History / Comment(s): ovarian, past in MVA General Exam Limitations: no limitations General appearance: alert, in no apparent distress Head exam: Present: atraumatic, normocephalic, normal inspection Eye exam: Present: normal appearance, PERRL, EOMI. Absent: scleral icterus, conjunctival injection, periorbital swelling ENT exam: Present: normal exam, mucous membranes moist Neck exam: Present: normal inspection. Absent: tenderness, meningismus, lymphadenopathy Respiratory exam: Present: normal lung sounds bilaterally. Absent: respiratory distress, wheezes, rales, rhonchi, stridor Cardiovascular Exam: Present: normal rhythm, tachycardia, normal heart sounds. Absent: systolic murmur, diastolic murmur, rubs, gallop, clicks GI/Abdominal exam: Present: soft, normal bowel sounds. Absent: distended, tenderness, guarding, rebound, rigid Extremities exam: Present: normal inspection, full ROM, normal capillary refill. Absent: tenderness, pedal edema, joint swelling, calf tenderness Back exam: Present: normal inspection Neurological exam: Present: alert, oriented X3, CN II-XII intact Psychiatric exam: Present: normal affect, normal mood Skin exam: Present: warm, dry, intact, normal color. Absent: rash Course Vital Signs 02/08/19 14:23 Temperature 98.4 F Pulse Rate 127 H Respiratory 18 Rate Blood Pressure 88/65 O2 Sat by Pulse 96 Oximetry - Reevaluation(s) Reevaluation #1: 02/08/19 15:32 Medical records reviewed Reevaluation #2: 02/08/19 15:32 Dizziness and lightheaded improved with fluid hydration Medical Decision Making - Medical Decision Making 63 male to the ER for GI bleed. Patient will be admitted for monitoring of hemoglobin and possible transfusion. Disposition Clinical Impression: Weakness, Melena, GI bleed, Syncope Disposition: ADMITTED IP TO THIS HOSP Condition: Fair Is patient prescribed a controlled substance at d/c from ED?: No Referrals: None,Stated [Primary Care Provider] - 1-2 days
[2019-02-08 15:35] LABS: Platelet Count 552 k/uL (150-450)
[2019-02-08 15:42] LABS: ALT 27 U/L (21-72); AST 26 U/L (17-59); Albumin 2.9 g/dL (3.5-5.0); Alkaline Phosphatase 359 U/L (38-126); Anion Gap 7 mmol/L; Blood Urea Nitrogen 36 mg/dL (9-20); Calcium 8.6 mg/dL (8.4-10.2); Carbon Dioxide 27 mmol/L (22-30); Chloride 105 mmol/L (98-107); Glucose 126 mg/dL (74-99); Lipase 43 U/L (23-300); Magnesium 1.9 mg/dL (1.6-2.3); Potassium 4.5 mmol/L (3.5-5.1); Sodium 139 mmol/L (137-145); Total Bilirubin 0.6 mg/dL (0.2-1.3); Total Protein 5.3 g/dL (6.3-8.2)
[2019-02-08 15:45] LABS: INR 1.1 (<1.2); Partial Thromboplastin Time 22.6 sec (22.0-30.0); Prothrombin Time 11.3 sec (9.0-12.0)
[2019-02-08] MEDS ORDERED: HYDROcodone/APAP 7.5-325MG 1 EACH TAB PO PRN (16:53)
--- NOTE | 2019-02-08 17:06 | P.HPIM ---
History of Present Illness 63-year-old male came in here with comments of for dark tarry stools was started today along with nausea vomiting and a syncopal episode today patient blood pressure is significantly low. Patient was diagnosed with breast cancer m etastases to the spine patient was Decadron and in the past for that. Patient is receiving hormonal therapy for his breast cancer. Patient denied any fever chills patient denied any dysuria. Patient identifies as a male, does have female sexual organs. Review of Systems REVIEW OF SYSTEMS: CONSTITUTIONAL: No fever, no malaise, no fatigue. HEENT: No recent visual problems or hearing problems. Denied any sore throat. CARDIOVASCULAR: No chest pain, orthopnea, PND, no palpitations, no syncope. PULMONARY: No shortness of breath, no cough, no hemoptysis. GASTROINTESTINAL: As mentioned in HPI denied any abdominal pain. NEUROLOGICAL: No headaches, no weakness, no numbness. HEMATOLOGICAL: Denies any bleeding or petechiae. GENITOURINARY: Denies any burning micturition, frequency, or urgency. MUSCULOSKELETAL/RHEUMATOLOGICAL: Denies any joint pain, swelling, or any muscle pain. ENDOCRINE: Denies any polyuria or polydipsia. The rest of the 14-point review of systems is negative. Past Medical History Past Medical History: Cancer Additional Past Medical History / Comment(s): Per pt cancer within spine, chest and breast History of Any Multi-Drug Resistant Organisms: None Reported Past Surgical History: No Surgical Hx Reported Past Anesthesia/Blood Transfusion Reactions: No Reported Reaction Past Psychological History: No Psychological Hx Reported Smoking Status: Never smoker Past Alcohol Use History: None Reported Past Drug Use History: None Reported - Past Family History Father Family Medical History: No Reported History Additional Family Medical History / Comment(s): ETOH at age of 50 Mother Family Medical History: Cancer Additional Family Medical History / Comment(s): ovarian, past in MVA Medications and Allergies Home Medications Medication Instructions Recorded Confirmed Type Aspirin EC [Ecotrin Low Dose] 81 mg PO DAILY 12/14/18 02/08/19 History Calcium Carbonate [Calcium] 600 mg PO DAILY 12/14/18 02/08/19 History Multivitamins, Thera [Multivitamin 1 tab PO DAILY 12/14/18 02/08/19 History (formulary)] Famotidine [Pepcid] 20 mg PO BID #60 tab 12/18/18 02/08/19 Rx Lisinopril [Prinivil] 5 mg PO DAILY #30 tablet 12/19/18 02/08/19 Rx Anastrozole [Arimidex] 1 mg PO DAILY 02/08/19 02/08/19 History HYDROcodone/APAP 7.5-325MG [[place] 1 tab PO Q8H PRN 02/08/19 02/08/19 History 7.5-325] Ondansetron HCl [Zofran] 8 mg PO Q8H PRN 02/08/19 02/08/19 History Allergies Allergy/AdvReac Type Severity Reaction Status Date / Time No Known Allergies Allergy Verified 02/08/19 15:21 Physical Exam Vitals: Vital Signs Temp Pulse Resp BP Pulse Ox 02/08/19 16:29 115 H 22 129/77 99 02/08/19 14:23 98.4 F 127 H 18 88/65 96 Intake and Output 02/08/19 02/08/19 02/08/19 06:59 14:59 22:59 Other: Weight 113.398 kg PHYSICAL EXAMINATION: GENERAL: The patient is alert and oriented x3, not in any acute distress. Well developed, well nourished. HEENT: Pupils are round and equally reacting to light. EOMI. No scleral icterus. No conjunctival pallor. Normocephalic, atraumatic. No pharyngeal erythema. No thyromegaly. CARDIOVASCULAR: S1 and S2 present. No murmurs, rubs, or gallops. Patient has a breast lesion which doesn't appear to be infected at this time looks much better than his last hospitalization PULMONARY: Chest is clear to auscultation, no wheezing or crackles. ABDOMEN: Soft, nontender, nondistended, normoactive bowel sounds. No palpable organomegaly. MUSCULOSKELETAL: No joint swelling or deformity. EXTREMITIES: No cyanosis, clubbing, or pedal edema. NEUROLOGICAL: Gross neurological examination did not reveal any focal deficits. SKIN: No rashes. Results CBC & Chem 7: 02/08/19 15:06 02/08/19 15:06 Labs: Abnormal Lab Results - Last 24 Hours (Table) 02/08/19 02/08/19 Range/Units 15:06 15:06 WBC 11.8 H (3.8-10.6) k/uL Hgb 12.4 L (13.0-17.5) gm/dL RDW 16.5 H (11.5-15.5) % Plt Count 552 H D (150-450) k/uL Neutrophils # 9.4 H (1.3-7.7) k/uL BUN 36 H (9-20) mg/dL Creatinine 0.56 L (0.66-1.25) mg/dL Glucose 126 H (74-99) mg/dL Alkaline Phosphatase 359 H (38-126) U/L Total Protein 5.3 L (6.3-8.2) g/dL Albumin 2.9 L (3.5-5.0) g/dL Assessment and Plan Plan: -possible upper GI bleed and hypotension secondary to that, patient will be started on IV fluids monitor closely gastric body was consulted patient was started on Protonix. -Breast cancer with metastases to spine patient is presently not on any steroid therapy is receiving hormonal therapy will consult oncology regarding recommendations for continuation of this hormonal therapy considering this pleasant acute GI bleed event -Reactive thrombocytosis and reactive leukocytosis -Tachycardia secondary to GI bleed -Hypertension patient is presently hypotensive because of which lisinopril will be held
[2019-02-08] MEDS: PANTOPRAZOLE 40 MG/10 ML VIAL IVP SCH (20:09)
[2019-02-09 08:12] LABS: Anisocytosis Slight; Basophils # (A) 0.1 k/uL (0-0.2); Basophils % (A) 1 %; Eosinophils # (A) 0.1 k/uL (0-0.7); Eosinophils % (A) 2 %; HCT 33.9 % (39.0-53.0); HGB 10.6 gm/dL (13.0-17.5); Hypochromasia Marked; Lymphocytes # (A) 1.2 k/uL (1.0-4.8); Lymphocytes % (A) 15 %; MCH 26.6 pg (25.0-35.0); MCHC 31.1 g/dL (31.0-37.0); MCV 85.4 fL (80.0-100.0); Mean Platelet Volume 6.6; Monocytes # (A) 0.5 k/uL (0-1.0); Monocytes % (A) 7 %; Neutrophils # (A) 5.4 k/uL (1.3-7.7); Neutrophils % (A) 72 %; Platelet Count 489 k/uL (150-450); Poikilocytosis Slight; RBC 3.97 m/uL (4.30-5.90); RDW 16.5 % (11.5-15.5); WBC 7.5 k/uL (3.8-10.6)
[2019-02-09 08:39] LABS: Anion Gap 4 mmol/L; Blood Urea Nitrogen 29 mg/dL (9-20); Calcium 8.3 mg/dL (8.4-10.2); Carbon Dioxide 27 mmol/L (22-30); Chloride 110 mmol/L (98-107); Glucose 91 mg/dL (74-99); Potassium 4.8 mmol/L (3.5-5.1); Sodium 141 mmol/L (137-145)
[2019-02-09] MEDS ORDERED: PANTOPRAZOLE 40 MG/10 ML VIAL IVP SCH (09:00)
[2019-02-09] MEDS ORDERED: ANASTROZOLE 1 MG TAB PO SCH (09:00)
[2019-02-09] MEDS ORDERED: ASPIRIN 81 MG PO SCH (09:00)
[2019-02-09] MEDS: PANTOPRAZOLE 40 MG/10 ML VIAL IVP SCH (10:40)
--- NOTE | 2019-02-09 11:27 | P.CONS ---
History of Present Illness - Reason for Consult Consult date: 02/09/19 GI bleed Requesting physician: Oneil Cole - Chief Complaint Dark tarry stools - History of Present Illness 63-year-old gentleman admitted with syncopal episode with reports of dark tarry bowel movements x 1 day. Past medical history of breast carcinoma with spinal metastasis. Denies gross hematemesis or hematochezia. Home medications include baby aspirin [place] Zofran calcium Arimidex and multivitamin. Admission hemoglobin 12.4 presently 10.6. Platelet 49-552. White count 7.5-11.8. BUN 36. Creatinine 0.5. CT chest abdomen and pelvis 12/15/2018 reported distracted bony lesions with suspicion of thecal sac or spinal cord compression level LII. Compression fractures L2 and T8. Innumerable pulmonary nodules compatible with widespread metastasis. Large left chest breast mass 5.2 cm. 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 No history of EGD/colonosocpy. No history of GIB/PUD. Aleve 4 tablets daily for at least a month secondary to lower back pain. Review of Systems Constitutional: Denies fever, chills, sweats, weight gain, or loss. HEENT: Negative for migraines, blurred vision or loss, earaches, drainage, tinnitus, oral mucosal lesions, dysphagia, or odynophagia. CARDIAC: Negative for chest pain, arrhythmias, or palpitation. RESPIRATORY: Negative for shortness of breath, hemoptysis, cough, or sputum production. GI: See HPI for pertinent findings. : Negative for hematuria, urgency, frequency, polyuria, or dysuria. MUSCULOSKELETAL: Negative for muscle aches, swelling, arthritis, and arthralgias. NEUROLOGIC: Negative for stroke or TIA. ENDOCRINE: Negative for thyroid problems. SKIN: Negative for rash or itching. PSYCHIATRIC: Negative history for depression and anxietyle Past Medical History Past Medical History: Cancer Additional Past Medical History / Comment(s): Per pt cancer within spine, chest and breast. Radiation 6 rounds via [facility]. Last radiation 12/22/2018. Patient states he is taking a pill and injection to treat cancer, he is unaware of what it is called. History of Any Multi-Drug Resistant Organisms: None Reported Past Surgical History: No Surgical Hx Reported Past Anesthesia/Blood Transfusion Reactions: No Reported Reaction Past Psychological History: No Psychological Hx Reported Additional Psychological History / Comment(s): Patient states he lives with , Yamini. Patient uses a walker and commode at home. Patient has to climb stairs into the house but has ramp. Smoking Status: Never smoker Past Alcohol Use History: None Reported Past Drug Use History: None Reported - Past Family History Father Family Medical History: No Reported History Additional Family Medical History / Comment(s): ETOH at age of 50 Mother Family Medical History: Cancer Additional Family Medical History / Comment(s): Ovarian Medications and Allergies Home Medications Medication Instructions Recorded Confirmed Type Aspirin EC [Ecotrin Low Dose] 81 mg PO DAILY 12/14/18 02/08/19 History Calcium Carbonate [Calcium] 600 mg PO DAILY 12/14/18 02/08/19 History Multivitamins, Thera [Multivitamin 1 tab PO DAILY 12/14/18 02/08/19 History (formulary)] Anastrozole [Arimidex] 1 mg PO DAILY 02/08/19 02/08/19 History HYDROcodone/APAP 7.5-325MG [[place] 1 tab PO Q8H PRN 02/08/19 02/08/19 History 7.5-325] Ondansetron HCl [Zofran] 8 mg PO Q8H PRN 02/08/19 02/08/19 History Allergies Allergy/AdvReac Type Severity Reaction Status Date / Time No Known Allergies Allergy Verified 02/08/19 15:21 Physical Exam Vitals: Vital Signs Temp Pulse Pulse Pulse Resp BP BP 02/09/19 07:05 18 02/09/19 04:57 97.7 F 100 18 121/75 02/08/19 21:10 02/08/19 20:16 98.2 F 111 H 18 130/83 02/08/19 18:57 98.2 F 133 H 18 126/75 02/08/19 18:28 98.7 F 110 H 20 119/70 02/08/19 16:29 115 H 22 129/77 02/08/19 14:23 98.4 F 127 H 18 88/65 Pulse Ox 02/09/19 07:05 02/09/19 04:57 96 02/08/19 21:10 97 02/08/19 20:16 96 02/08/19 18:57 97 02/08/19 18:28 99 02/08/19 16:29 99 02/08/19 14:23 96 Intake and Output 02/08/19 02/09/19 02/09/19 22:59 06:59 14:59 Intake Total 920 920 Balance 920 920 Intake: Amount of Fluid Infused ( 500 ml) Intake, IV Titration 300 800 Amount Sodium Chloride 0.9% 1, 300 800 000 ml @ 100 mls/hr IV . Q10H STA Rx#:[id number] Oral 120 120 Other: Voiding Method Bedside Commode Bedside Commode # Voids 1 # Bowel Movements 2 General appearance: The patient is alert, oriented, in no acute distress. HET: Head is normocephalic and atraumatic. Pupils are equal and reactive. Oropharynx is clear without lesions. Neck: Supple without lymphadenopathy. Trachea midline. Heart: S1 S2. Regular rate and rhythm. Lungs: No crackles or wheezes are heard. Abdomen: Soft, nontender, nondistended with bowel sounds. No peritoneal signs. No palpable organomegaly or masses. Extremities: Normal skin color and turgor. No cyanosis, rash, ulceration, clubbing, or edema. Radial and pedal pulses are 2/4 bilaterally. Neurological: No focal deficits. Strength and sensation are grossly intact. Results CBC & Chem 7: 02/09/19 07:33 02/09/19 07:33 Labs: Abnormal Lab Results - Last 24 Hours (Table) 02/08/19 02/08/19 02/09/19 Range/Units 15:06 15:06 07:33 WBC 11.8 H (3.8-10.6) k/uL RBC 3.97 L (4.30-5.90) m/uL Hgb 12.4 L 10.6 L (13.0-17.5) gm/dL Hct 33.9 L (39.0-53.0) % RDW 16.5 H 16.5 H (11.5-15.5) % Plt Count 552 H D 489 H (150-450) k/uL Neutrophils # 9.4 H (1.3-7.7) k/uL Chloride (98-107) mmol/L BUN 36 H (9-20) mg/dL Creatinine 0.56 L (0.66-1.25) mg/dL Glucose 126 H (74-99) mg/dL Calcium (8.4-10.2) mg/dL Alkaline Phosphatase 359 H (38-126) U/L Total Protein 5.3 L (6.3-8.2) g/dL Albumin 2.9 L (3.5-5.0) g/dL 02/09/19 Range/Units 07:33 WBC (3.8-10.6) k/uL RBC (4.30-5.90) m/uL Hgb (13.0-17.5) gm/dL Hct (39.0-53.0) % RDW (11.5-15.5) % Plt Count (150-450) k/uL Neutrophils # (1.3-7.7) k/uL Chloride 110 H (98-107) mmol/L BUN 29 H (9-20) mg/dL Creatinine 0.48 L (0.66-1.25) mg/dL Glucose (74-99) mg/dL Calcium 8.3 L (8.4-10.2) mg/dL Alkaline Phosphatase (38-126) U/L Total Protein (6.3-8.2) g/dL Albumin (3.5-5.0) g/dL Assessment and Plan (1) Melena Narrative/Plan: 63-year-old gentleman past medical history metastatic breast cancer admitted with acute syncopal episode melanotic bowel movements component of acute blood loss anemia taking NSAIDS x 1 month for lower lumbar pain. Possible NSAID induced peptic ulcer possible bleeding AVM possible erosive esophagitis gastritis duodenitis. Current Visit: Yes Status: Acute Code(s): K92.1 - MELENA SNOMED Code(s): 9608330 (2) Syncope Current Visit: Yes Status: Acute Code(s): R55 - SYNCOPE AND COLLAPSE SNOMED Code(s): 032242252 (3) Metastatic cancer Current Visit: No Status: Acute Code(s): C79.9 - SECONDARY MALIGNANT NEOPLASM OF UNSPECIFIED SITE SNOMED Code(s): 193564384 Plan: Plan: 1. EGD today; if unremarkable will discuss inpatient SBC/colonosocpy as indicated. 2. Protonix 40 mg twice daily. 3. CBC monitoring. The filling winder has discussed the risks, benefits and alternative therapies for the above-mentioned procedure and for both sedation/analgesia as well as necessary blood product administration, if indicated, as they pertain to this patient. The patient has indicated understanding and acceptance of the risks and procedures discussed. Thank you for this kind referral and the opportunity to participate in the care of your patient. This consultation was discussed with Dr Canas. The impression and plan of care have been directed as dictated.
[2019-02-09 13:36] VITALS: BMI 35.9
--- NOTE | 2019-02-09 14:18 | P.PN ---
Subjective 71-year-old pleasant male came in for possible upper GI bleed patient has 2 dark stools today patient's hemoglobin came down to 10.1 from 12.5. Patient will undergo upper GI endoscopy, with Protonix. Monitor her overnight today patient doesn't have any significant active bleed in the upper GI endoscopy and if his dark stools resolved, patient will be discharged tomorrow on Protonix for a month. Patient has recent history of NSAID use in the steroid use. Constitutional: Denied any fatigue denied any fever. Cardio vascular: denied any chest pain, palpitations Gastrointestinal denied any nausea vomiting Pulmonary: Denied any shortness of breath cough Neurologic denied any new focal deficits All inpatient medications were reviewed and appropriate changes in these medications as dictated in the interval history and assessment and plan. Objective - Vital Signs Vital signs: Vital Signs Temp 98.0 F 02/09/19 11:25 Pulse 103 H 02/09/19 11:25 Resp 18 02/09/19 11:25 BP 107/68 02/09/19 11:25 Pulse Ox 94 L 02/09/19 11:25 Intake & Output 02/08/19 02/09/19 02/09/19 18:59 06:59 18:59 Intake Total 500 1340 200 Balance 500 1340 200 Weight 113.398 kg 113.398 kg Intake: Amount of Fluid Infused ( 500 ml) Intake, IV Titration 1100 200 Amount Sodium Chloride 0.9% 1, 1100 200 000 ml @ 100 mls/hr IV . Q10H STA Rx#:[id number] Oral 240 Other: Voiding Method Bedside Commode Bedside Commode # Voids 1 2 # Bowel Movements 2 - Exam PHYSICAL EXAMINATION: GENERAL: The patient is alert and oriented x3, not in any acute distress. Well d eveloped, well nourished. HEENT: Pupils are round and equally reacting to light. EOMI. No scleral icterus. No conjunctival pallor. Normocephalic, atraumatic. No pharyngeal erythema. No thyromegaly. CARDIOVASCULAR: S1 and S2 present. No murmurs, rubs, or gallops. Patient has a breast lesion which doesn't appear to be infected at this time looks much better than his last hospitalization PULMONARY: Chest is clear to auscultation, no wheezing or crackles. ABDOMEN: Soft, nontender, nondistended, normoactive bowel sounds. No palpable organomegaly. MUSCULOSKELETAL: No joint swelling or deformity. EXTREMITIES: No cyanosis, clubbing, or pedal edema. NEUROLOGICAL: Gross neurological examination did not reveal any focal deficits. SKIN: No rashes. - Labs CBC & Chem 7: 02/09/19 07:33 02/09/19 07:33 Labs: Abnormal Lab Results - Last 24 Hours (Table) 02/08/19 02/08/19 02/09/19 Range/Units 15:06 15:06 07:33 WBC 11.8 H (3.8-10.6) k/uL RBC 3.97 L (4.30-5.90) m/uL Hgb 12.4 L 10.6 L (13.0-17.5) gm/dL Hct 33.9 L (39.0-53.0) % RDW 16.5 H 16.5 H (11.5-15.5) % Plt Count 552 H D 489 H (150-450) k/uL Neutrophils # 9.4 H (1.3-7.7) k/uL Chloride (98-107) mmol/L BUN 36 H (9-20) mg/dL Creatinine 0.56 L (0.66-1.25) mg/dL Glucose 126 H (74-99) mg/dL Calcium (8.4-10.2) mg/dL Alkaline Phosphatase 359 H (38-126) U/L Total Protein 5.3 L (6.3-8.2) g/dL Albumin 2.9 L (3.5-5.0) g/dL 02/09/19 Range/Units 07:33 WBC (3.8-10.6) k/uL RBC (4.30-5.90) m/uL Hgb (13.0-17.5) gm/dL Hct (39.0-53.0) % RDW (11.5-15.5) % Plt Count (150-450) k/uL Neutrophils # (1.3-7.7) k/uL Chloride 110 H (98-107) mmol/L BUN 29 H (9-20) mg/dL Creatinine 0.48 L (0.66-1.25) mg/dL Glucose (74-99) mg/dL Calcium 8.3 L (8.4-10.2) mg/dL Alkaline Phosphatase (38-126) U/L Total Protein (6.3-8.2) g/dL Albumin (3.5-5.0) g/dL Assessment and Plan Plan: -possible upper GI bleed and hypotension secondary to that, patient will be s tarted on IV fluids monitor closely gastroenterology evaluated the patient and patient will undergo upper GI endoscopy and patient is presently on Protonix -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
--- NOTE | 2019-02-09 14:37 | P.CONS ---
History of Present Illness - Reason for Consult Consult date: 02/09/19 metastatic breast cancer Requesting physician: Oneil Cole - Chief Complaint black stool, BRBPR - History of Present Illness Pt is a very pleasant 63 yr old, , identifies as male. Seen in initial consult early December when admitted for right lower back and intermittent rt groin pain for about 9-10 mths. Pt felt " something pop" in her lower pelvic area and developed marked pain, radiating to the left hip/groin, and down the LLE. She therefore came in to the ER, CT lumbosacral spine showing metastatic appearing lesions in the lower T spine, L spine with significant destruction of the sacrum on the left. Nodules in both lung bases were also noted. On exam pt found to have left breast mass and on 12/18 this was biopsied, path revealing invasive ductal adenocarcinoma, ER/MN positive, Her2, 2+ IHC, FISH not amplified. Pt received radiation to painful bone mets and completed that earlier this month, due to start oral palliative treatment. Pt was due in office for chemo teaching yesterday but, phoned office with c/o black/maroon stool with blood clots x 1-2 days, persistent, no fever, vomiting, hematuria, noted epigastric discomfort, early satiety, no abd pain, rectal pain, hematuria. Recommendation was to come to hospital for evaluation. Hgb 10.6 on admit-moderate drop in Hgb from normal baseline, 2 black stool since admit, no other pain or c/o. EGD is planned for today. Review of Systems 14 point ROS is negative except as stated in HPI Past Medical History Past Medical History: Cancer Additional Past Medical History / Comment(s): Per pt cancer within spine, chest and breast. Radiation 6 rounds via [facility]. Last radiation 12/22/2018. Patient states he is taking a pill and injection to treat cancer, he is unaware of what it is called. History of Any Multi-Drug Resistant Organisms: None Reported Past Surgical History: No Surgical Hx Reported Past Anesthesia/Blood Transfusion Reactions: No Reported Reaction Past Psychological History: No Psychological Hx Reported Additional Psychological History / Comment(s): Patient states he lives with , Yamini. Patient uses a walker and commode at home. Patient has to climb stairs into the house but has ramp. Smoking Status: Never smoker Past Alcohol Use History: None Reported Past Drug Use History: None Reported - Past Family History Father Family Medical History: No Reported History Additional Family Medical History / Comment(s): ETOH at age of 50 Mother Family Medical History: Cancer Additional Family Medical History / Comment(s): Ovarian Medications and Allergies Home Medications Medication Instructions Recorded Confirmed Type Aspirin EC [Ecotrin Low Dose] 81 mg PO DAILY 12/14/18 02/08/19 History Calcium Carbonate [Calcium] 600 mg PO DAILY 12/14/18 02/08/19 History Multivitamins, Thera [Multivitamin 1 tab PO DAILY 12/14/18 02/08/19 History (formulary)] Anastrozole [Arimidex] 1 mg PO DAILY 02/08/19 02/08/19 History HYDROcodone/APAP 7.5-325MG [[place] 1 tab PO Q8H PRN 02/08/19 02/08/19 History 7.5-325] Ondansetron HCl [Zofran] 8 mg PO Q8H PRN 02/08/19 02/08/19 History Allergies Allergy/AdvReac Type Severity Reaction Status Date / Time No Known Allergies Allergy Verified 02/08/19 15:21 Physical Exam Vitals: Vital Signs Temp Pulse Pulse Pulse Pulse Resp BP 02/09/19 11:25 98.0 F 103 H 18 02/09/19 07:05 18 02/09/19 04:57 97.7 F 100 18 02/08/19 21:10 02/08/19 20:16 98.2 F 111 H 18 02/08/19 18:57 98.2 F 133 H 18 02/08/19 18:28 98.7 F 110 H 20 119/70 02/08/19 16:29 115 H 22 129/77 02/08/19 14:23 98.4 F 127 H 18 88/65 BP Pulse Ox 02/09/19 11:25 107/68 94 L 02/09/19 07:05 02/09/19 04:57 121/75 96 02/08/19 21:10 97 02/08/19 20:16 130/83 96 02/08/19 18:57 126/75 97 02/08/19 18:28 99 02/08/19 16:29 99 02/08/19 14:23 96 Intake and Output 02/08/19 02/09/1902/09/19 22:59 06:59 14:59 Intake Total 920 920 200 Balance 920 920 200 Intake: Amount of Fluid Infused ( 500 ml) Intake, IV Titration 300 800 200 Amount Sodium Chloride 0.9% 1, 300 800 200 000 ml @ 100 mls/hr IV . Q10H STA Rx#:[id number] Oral 120 120 Other: Voiding Method Bedside Commode Bedside Commode # Voids 1 2 # Bowel Movements 2 Weight 113.398 kg - Constitutional General appearance: cooperative, no acute distress, obese - EENT Eyes: anicteric sclerae, EOMI ENT: hearing grossly normal, normal oropharynx - Respiratory Respiratory: bilateral: CTA - Cardiovascular Rhythm: regular Heart sounds: normal: S1, S2 Abnormal Heart Sounds: no systolic murmur, no diastolic murmur, no rub, no S3 Gallop, no S4 Gallop, no click, no other leg Peripheral Edema: bilateral: Trace - Gastrointestinal General gastrointestinal: no absent bowel sounds, no decreased bowel sounds, no distended, no hepatomegaly, no hyperactive bowel sounds, normal bowel sounds, no organomegaly, no rigid, no scaphoid, soft, no splenomegaly, no tenderness, no umbilical hernia, no ventral hernia - Integumentary Integumentary: pale - Neurologic Neurologic: CNII-XII intact - Musculoskeletal Musculoskeletal: strength equal bilaterally - Psychiatric Psychiatric: A&O x's 3, appropriate affect, intact judgment & insight Results CBC & Chem 7: 02/09/19 07:33 02/09/19 07:33 Labs: Abnormal Lab Results - Last 24 Hours (Table) 02/08/19 02/08/19 02/09/19 Range/Units 15:06 15:06 07:33 WBC 11.8 H (3.8-10.6) k/uL RBC 3.97 L (4.30-5.90) m/uL Hgb 12.4 L 10.6 L (13.0-17.5) gm/dL Hct 33.9 L (39.0-53.0) % RDW 16.5 H 16.5 H (11.5-15.5) % Plt Count 552 H D 489 H (150-450) k/uL Neutrophils # 9.4 H (1.3-7.7) k/uL Chloride (98-107) mmol/L BUN 36 H (9-20) mg/dL Creatinine 0.56 L (0.66-1.25) mg/dL Glucose 126 H (74-99) mg/dL Calcium (8.4-10.2) mg/dL Alkaline Phosphatase 359 H (38-126) U/L Total Protein 5.3 L (6.3-8.2) g/dL Albumin 2.9 L (3.5-5.0) g/dL 02/09/19 Range/Units 07:33 WBC (3.8-10.6) k/uL RBC (4.30-5.90) m/uL Hgb (13.0-17.5) gm/dL Hct (39.0-53.0) % RDW (11.5-15.5) % Plt Count (150-450) k/uL Neutrophils # (1.3-7.7) k/uL Chloride 110 H (98-107) mmol/L BUN 29 H (9-20) mg/dL Creatinine 0.48 L (0.66-1.25) mg/dL Glucose (74-99) mg/dL Calcium 8.3 L (8.4-10.2) mg/dL Alkaline Phosphatase (38-126) U/L Total Protein (6.3-8.2) g/dL Albumin (3.5-5.0) g/dL Assessment and Plan (1) Melena Narrative/Plan: 2 black stools today. EGD scheduled for today. Hgb monitoring, no transfusion needed at this time Current Visit: Yes Status: Acute Priority: High Code(s): K92.1 - MELENA SNOMED Code(s): 6636482 (2) Metastatic cancer Narrative/Plan: Pt has started on Arimidex, pending RankLigand inhibitor and Ibrance delivery to begin palliative therapy for metastatic breast cancer Current Visit: Yes Status: Acute Priority: High Code(s): C79.9 - SECONDARY MALIGNANT NEOPLASM OF UNSPECIFIED SITE SNOMED Code(s): 560982601
[2019-02-09] MEDS ORDERED: SUCCINYLCHOLINE CHLORIDE 100 MG/5 ML SYR IV ONE (15:24)
[2019-02-09] MEDS ORDERED: LIDOCAINE 1% INJ 10MG/ML (20 ML MDV) ONE (15:24)
[2019-02-09] MEDS ORDERED: ROCURONIUM BROMIDE 10 MG/ML 10 ML VIAL IV ONE (15:24)
[2019-02-09] MEDS ORDERED: PROPOFOL 10 MG/ML 20 ML VIAL IV ONE (15:24)
[2019-02-09] MEDS ORDERED: IV FLUID CONTINUATION 600 ML IV ONE (15:28)
[2019-02-09] MEDS ORDERED: EPINEPHrine 10 ML SYRINGE (0.1 MG/ML) MISCELLANE ONE (15:47)
[2019-02-09] MEDS ORDERED: PANTOPRAZOLE 40 MG/10 ML VIAL IVP ONE (16:53)
[2019-02-09] MEDS ORDERED: EPINEPHrine 10 ML SYRINGE (0.1 MG/ML) ONE ×2 (17:00)
[2019-02-09] MEDS ORDERED: NOREPINEPHRINE 4 MG in SODIUM CHLORIDE 0.9% 250 ML IV SCH (17:00)
--- NOTE | 2019-02-09 17:19 | ED ---
Medical Decision Making - Medical Decision Making Called for CODE BLUE for patient in endoscopy. Patient did have bleeding prior to procedure that did limit procedure. During evaluation patient did lose pulse. ACLS protocol was followed. Code was called at 1611. Arrival time approximately 1615. Patient did have return of pulses. Anesthesia and surgery and GI are present. Interosseous line was placed. Critical care time 30 minutes. - Lab Data Result diagrams: 02/09/19 07:33 02/09/19 07:33 Lab Results 02/08/19 02/08/19 02/08/19 Range/Units 15:06 15:06 15:06 WBC 11.8 H (3.8-10.6) k/uL RBC 4.62 (4.30-5.90) m/uL Hgb 12.4 L (13.0-17.5) gm/dL Hct 39.2 (39.0-53.0) % MCV 84.7 (80.0-100.0) fL MCH 26.8 (25.0-35.0) pg MCHC 31.7 (31.0-37.0) g/dL RDW 16.5 H (11.5-15.5) % Plt Count 552 H D (150-450) k/uL Neutrophils % 80 % Lymphocytes % 11 % Monocytes % 6 % Eosinophils % 0 % Basophils % 1 % Neutrophils # 9.4 H (1.3-7.7) k/uL Lymphocytes # 1.2 (1.0-4.8) k/uL Monocytes # 0.7 (0-1.0) k/uL Eosinophils # 0.0 (0-0.7) k/uL Basophils # 0.1 (0-0.2) k/uL Hypochromasia Moderate Poikilocytosis Slight Anisocytosis Slight PT 11.3 (9.0-12.0) sec INR 1.1 (<1.2) APTT 22.6 (22.0-30.0) sec Sodium 139 (137-145) mmol/L Potassium 4.5 (3.5-5.1) mmol/L Chloride 105 (98-107) mmol/L Carbon Dioxide 27 (22-30) mmol/L Anion Gap 7 mmol/L BUN 36 H (9-20) mg/dL Creatinine 0.56 L (0.66-1.25) mg/dL Est GFR (CKD-EPI)AfAm >90 (>60 ml/min/1.73 sqM) Est GFR (CKD-EPI)NonAf >90 (>60 ml/min/1.73 sqM) Glucose 126 H (74-99) mg/dL Calcium 8.6 (8.4-10.2) mg/dL Magnesium 1.9 (1.6-2.3) mg/dL Total Bilirubin 0.6 (0.2-1.3) mg/dL AST 26 (17-59) U/L ALT 27 (21-72) U/L Alkaline Phosphatase 359 H (38-126) U/L Troponin I (0.000-0.034) ng/mL Total Protein 5.3 L (6.3-8.2) g/dL Albumin 2.9 L (3.5-5.0) g/dL Lipase 43 (23-300) U/L Blood Type Blood Type Recheck Antibody Screen Crossmatch Spec Expiration Date 02/08/19 02/08/19 Range/Units 15:06 15:06 WBC (3.8-10.6) k/uL RBC (4.30-5.90) m/uL Hgb (13.0-17.5) gm/dL Hct (39.0-53.0) % MCV (80.0-100.0) fL MCH (25.0-35.0) pg MCHC (31.0-37.0) g/dL RDW (11.5-15.5) % Plt Count (150-450) k/uL Neutrophils % % Lymphocytes % % Monocytes % % Eosinophils % % Basophils % % Neutrophils # (1.3-7.7) k/uL Lymphocytes # (1.0-4.8) k/uL Monocytes # (0-1.0) k/uL Eosinophils # (0-0.7) k/uL Basophils # (0-0.2) k/uL Hypochromasia Poikilocytosis Anisocytosis PT (9.0-12.0) sec INR (<1.2) APTT (22.0-30.0) sec Sodium (137-145) mmol/L Potassium (3.5-5.1) mmol/L Chloride (98-107) mmol/L Carbon Dioxide (22-30) mmol/L Anion Gap mmol/L BUN (9-20) mg/dL Creatinine (0.66-1.25) mg/dL Est GFR (CKD-EPI)AfAm (>60 ml/min/1.73 sqM) Est GFR (CKD-EPI)NonAf (>60 ml/min/1.73 sqM) Glucose (74-99) mg/dL Calcium (8.4-10.2) mg/dL Magnesium (1.6-2.3) mg/dL Total Bilirubin (0.2-1.3) mg/dL AST (17-59) U/L ALT (21-72) U/L Alkaline Phosphatase (38-126) U/L Troponin I <0.012 (0.000-0.034) ng/mL Total Protein (6.3-8.2) g/dL Albumin (3.5-5.0) g/dL Lipase (23-300) U/L Blood Type O Positive Blood Type Recheck CABO Indicated Antibody Screen NEGATIVE Crossmatch See Detail Spec Expiration Date 02/11/20192305 Disposition Clinical Impression: Weakness, Melena, GI bleed, Syncope Disposition: ADMITTED IP TO THIS [facility] Condition: Fair Is patient prescribed a controlled substance at d/c from ED?: No Procedures - Ward Protocol (Time Out) Patient Identification (2 identifiers required): Chart, Verbal, Arm Band, Name, Birthdate Patient/Legal Test Engineering Manager has Confirmed: Identity, Procedure, Consent Site Marked: Not Applicable - Procedures Initial comment: Procedure: Intraosseous line placement. Right superior tibia was cleansed. Usi ng IO gun line was placed without any Complication. Good blood return.
[2019-02-09 17:42] LABS: Glucose,Whole Blood 177 mg/dL (75-99)
[2019-02-09] MEDS ORDERED: SODIUM CHLORIDE 0.9% 50 ML with VASOPRESSIN 20 UNIT IVPB SCH ×2 (18:15)
[2019-02-09 18:59] VITALS: TEMP 97.9
[2019-02-09 19:16] LABS: Hypochromasia Marked; Poikilocytosis Slight
[2019-02-09 19:19] LABS: HCT 36.3 % (39.0-53.0); HGB 10.5 gm/dL (13.0-17.5); MCH 28.8 pg (25.0-35.0); MCHC 29.1 g/dL (31.0-37.0); MCV 99.1 fL (80.0-100.0); Macrocytosis Slight; Mean Platelet Volume 7.9; Platelet Count 109 k/uL (150-450); RBC 3.66 m/uL (4.30-5.90); RDW 14.8 % (11.5-15.5); WBC 14.6 k/uL (3.8-10.6)
[2019-02-09 19:22] VITALS: BP 00/00; PULSE 106; RESP 22
[2019-02-09 19:25] LABS: Anion Gap 13 mmol/L; Blood Urea Nitrogen 17 mg/dL (9-20); Calcium 6.9 mg/dL (8.4-10.2); Carbon Dioxide 10 mmol/L (22-30); Chloride 120 mmol/L (98-107); Glucose 160 mg/dL (74-99); Potassium 5.5 mmol/L (3.5-5.1); Sodium 143 mmol/L (137-145)
[2019-02-09 19:35] LABS: INR 2.1 (<1.2); Prothrombin Time 20.2 sec (9.0-12.0)
[2019-02-09 19:42] LABS: Partial Thromboplastin Time >200.0 sec (22.0-30.0)
[2019-02-09 20:17] LABS: Anisocytosis (M) Present; Eosinophils # (M) 0.29 k/uL (0-0.7); Lymphocytes # (M) 2.92 k/uL (1.0-4.8); Monocytes # (M) 0.29 k/uL (0-1.0); Neutrophils % (M) 76 %; Nucleated Red Blood Cells 0 /100 WBC (0-0); Polychromasia Present; Total Cells Counted 100
--- NOTE | 2019-02-10 08:43 | P.PN ---
Progress Note - Text Progress Note Date: 02/09/19 Called to endoscopy secondary to concern of bleeding duodenal ulcer. I was informed at that time that the patient was being intubated. On my arrival to the endoscopy suite, patient was intubated. Monitors were unable to obtain blood pressure read. Pulse check revealed no pulse and ACLS protocol was initiated. Multiple rounds of ACLS were needed to be performed as the patient did have some return of circulation, only to have a repeat loss of pulse. After approximately one hour of ACLS PROTOCOL, ROSC was obtained. At this point, patient was on maximum dose of Levophed and was still noted to be hypotensive. Transfusion of blood had started. Patient, at this point, was too unstable for surgical intervention. The patient was transferred to the ICU from endoscopy and shortly after was found to be in PEA. ACLS protocol was again initiated. Vasopressin was initiated along with Levophed. The patient's did present while the patient was in ICU. I did discuss the case with the patient's and answered all questions. I was informed later in the evening that the patient's did opt for withdrawal of care and the patient did .
--- NOTE | 2019-02-13 14:27 | P.DS ---
Providers Date of admission: 02/08/19 15:27 Expected date of discharge: 02/08/19 Attending physician: Lesa Constantino Consults: 02/08/19 15:27 Consult Physician Routine Consulting Provider: Aidan Felipe Consult Reason/Comments: gib Do you want consulting provider notified?: Yes 02/08/19 16:55 Consult Physician Routine Consulting Provider: Alonso Butler Consult Reason/Comments: Hypoxia and possible aspiration Do you want consulting provider notified?: Yes Primary care physician: Stated None Hospital Course: 63-year-old female admitted for GI bleed upper GI bleed patient went an endoscopy patient has extensive ulcerations of the abdomen with an arterial bleed although not ideal for lesion, the bleed did get worse and patient coded in endoscopy suite and was transferred to ICU and coded immediately and subsequently . Preliminary cause of : Upper GI bleed Patient Condition at Discharge: Fair Plan - Discharge Summary Discharge Rx Participant: Yes New Discharge Prescriptions: No Action Multivitamins, Thera [Multivitamin (formulary)] 1 tab PO DAILY Aspirin EC [Ecotrin Low Dose] 81 mg PO DAILY Calcium Carbonate [Calcium] 600 mg PO DAILY HYDROcodone/APAP 7.5-325MG [[place] 7.5-325] 1 tab PO Q8H PRN PRN Reason: Pain Anastrozole [Arimidex] 1 mg PO DAILY Ondansetron HCl [Zofran] 8 mg PO Q8H PRN PRN Reason: Nausea Discharge Medication List Aspirin EC [Ecotrin Low Dose] 81 mg PO DAILY 12/14/18 [History] Calcium Carbonate [Calcium] 600 mg PO DAILY 12/14/18 [History] Multivitamins, Thera [Multivitamin (formulary)] 1 tab PO DAILY 12/14/18 [History] Anastrozole [Arimidex] 1 mg PO DAILY 02/08/19 [History] HYDROcodone/APAP 7.5-325MG [[place] 7.5-325] 1 tab PO Q8H PRN 02/08/19 [History] Ondansetron HCl [Zofran] 8 mg PO Q8H PRN 02/08/19 [History] Follow up Appointment(s)/Referral(s): None,Stated [Primary Care Provider] - 1-2 days Discharge Disposition: - Preliminary Cause of Preliminary Cause of : Upper GI bleed
--- NOTE | 2019-02-21 10:08 | P.PCN ---
Date of Procedure: 02/09/19 Description of Procedure: BRIEF HISTORY: 63-year-old patient admitted with a syncopal episode and reports of dark tarry bowel movements for one day. The patient has a history of metastatic breast carcinoma with metastases to the spine. On presentation the patient had denied any gross hematemesis or hematochezia. Medications included baby aspirin, [place], Zofran, calcium, Arimidex and a multivitamin. On presentation hemoglobin was initially 12.4 and fell to 10.6. No history of prior EGD or colonoscopy. Patient denies any history of GI bleed or peptic ulcer disease. Patient reports use of Aleve, 4 tablets per day for the month prior to presentation for treatment of lower back pain. PROCEDURE PERFORMED: Esophagogastroduodenoscopy. PREOPERATIVE DIAGNOSIS: []. ESTIMATED BLOOD LOSS: Minimal. IV sedation per anesthesia. PROCEDURE: Extensive conversation with the risks, side effects and benefits of performing upper endoscopy for evaluation of the patient's acute blood loss anemia and melena including but not limited to the risks of perforation, GI bleed, infect ion and even . The patient is aware that given their significant comorbidities including metastatic breast cancer the risks of this procedure are increased. All of their questions have been answered to their satisfaction. IV sedation was administered by Anesthesia under continuous monitoring. Initially the Olympus GIF-190 video endoscope was inserted into the mouth. Esophagus intubated without any difficulty. It was gradually advanced into the stomach and duodenum and carefully examined. The duodenal bulb was grossly ulcerated, with the entire polyp encompassed by the ulcer. A large visible vessel was noted in the Center of the ulcer and some oozing at the edges of the ulcer were also noted. The scope was then passed to the second portion of the duodenum which appeared normal. The scope at this time was withdrawn to the stomach, adequately insufflated with air, and upon careful examination, mucosa of the antrum, body, cardia and the fundus appeared normal except for a small nonbleeding ulcer in the antrum of the stomach without high risk stigmata for bleeding. At this time an endoscopic clip was passed through the scope and the duodenal bulb was again intubated. The large visible vessel in the duodenal bulb and oozing of blood were again seen. Before the clip couldn't be deployed spurting of blood from the vessel began impeding visualization. At this time the endoscopic clip was removed from the scope due to impaired visualization and endoscopic needle was passed through the scope with plans injection of epinephrine. However given the volume of blood it was decided with the anesthesia team at the procedure should be halted and the patient should be intubated for protection of the patient's airway. Please see records from anesthesia and the [facility] team for further details. After the patient was intubated and stabilized the scope was introduced back into the stomach and at this time no further active bleeding was noted with a large amount of old blood noted in the stomach. The scope was then withdrawn into the esophagus. The GE junction was located at 39 cm from the incisors. The esophagus appeared normal except for a large amount of blood noted throughout the esophagus . There were no erosions or ulcerations seen and the patient tolerated the procedure well. IMPRESSION: 1. Diffuse ulceration of the duodenal bulb with a large visible vessel and active bleeding unable to be controlled with epinephrine or clip placement as visualization of the area was impeded by active spurting of blood. 2. Flat antral ulcer without high-risk stigmata for rebleeding. RECOMMENDATIONS: The findings of this examination were discussed with the patient's partner. The patient was transferred to the intensive care unit for further treatment. The case was discussed at length with the on-call surgeon, the textile knitter service and the primary team. Further recommendations pending clinical course. Prognosis is extremely poor given findings on EGD just been communicated with the patient's partner as well as the medical team.
--- NOTE | 2019-02-28 09:47 | CDI ---
Documentation Clarification Form Date: 02/28/2019 9:07:31 AM From: Malini Velasco RN, CCDS Email: [email or web address] Admit Date: 02/08/2019 3:27:00 PM Patient Name: Umm Terrazas Visit Number: [id number] Discharge Date: 02/09/2019 10:30:00 PM ATTENTION: The Clinical Documentation Specialists (CDI) and [facility] Coding Staff appreciate your assistance in clarifying documentation. Please respond to the clarification below the line at the bottom and electronically sign. The CDI & [facility] Coding staff will review the response and follow-up if needed. Please note: Queries are made part of the Legal Health Record. If you have any questions, please contact the author of this message via ITS. Dr. Valentin Canas The patient was admitted with GI bleed. EGD was performed with documentation stating: Endoscope was inserted into the mouth. Esophagus intubated without any difficulty. It was gradually advanced into the stomach and duodenum and carefully examined. The duodenal bulb was grossly ulcerated, with the entire polyp encompassed by the ulcer. A large visible vessel was noted in the center of the ulcer and some oozing at the edges of the ulcer were also noted. The scope was then passed to the second portion of the duodenum which appeared normal. The scope at this time was withdrawn to the stomach, appeared normal except for a small nonbleeding ulcer in the antrum of the stomach. At this time an endoscopic clip was passed through the scope and the duodenal bulb was again intubated. The large visible vessel in the duodenal bulb and oozing of blood were again seen. Before the clip could be deployed, spurting of blood from the vessel began impeding visualization. At this time the endoscopic clip was removed from the scope due to impaired visualization and endoscopic needle was passed through the scope with plans injection of epinephrine. However given the volume of blood it was decided with the anesthesia team the procedure should be halted and the patient should be intubated for protection of airway. After patient intubated and stabilized the scope was introduced back into the stomach and at this time no further active bleeding was noted with a large amount of old blood noted in the stomach. The scope was then withdrawn into the esophagus. The esophagus appeared normal except for a large amount of blood noted throughout the esophagus. History/risk factors: breast cancer with mets to spine, takes Aleve tabs 4x/day for back pain Clinical Indicators: dark tarry stools, Hgb 10.6, active GI bleed, spurting of blood from duodenal ulcer seen during EGD, hypotensive, transferred to ICU with rapid transfusion of blood, OG tube in place with approximately 2.3L of blood loss through tube in the ICU. Patient coded x2. Vitals: hypotensive, tachycardic Treatment: Code blue with resuscitation, transferred to ICU with rapid transfusion of blood, Platelets, Plasma, IV Levophed, IV Vasopressin In your professional opinion, can you please specify if the above is clinically significant for? Hemorrhagic Shock due to existing bleeding duodenal ulcer Hypovolemic Shock due to existing bleeding duodenal ulcer Shock, Other cause, please specify Unable to determine Hemorrhagic shock due to existing bleeding duodenal ulcer MTDD
== END 2019-02-09 22:30 | disposition expired | DRG 378 ==
LOC: EC 14:11 → 3NMEDONC 15:27 → OBSVTOIN 15:27 → 3NMEDONC 18:00 → 2SICU 02-09 17:52
PROVIDERS: ADMIT Hospitalist; ATTEND Hospitalist
PROC: 0D9670Z Drainage of Stomach with Drainage Device, Via Natural or Artificial Opening (ICD-10-PCS; 2019-02-09)
PROC: 5A12012 Performance of Cardiac Output, Single, Manual (ICD-10-PCS; 2019-02-09)
PROC: 0YHH33Z Insertion of Infusion Device into Right Lower Leg, Percutaneous Approach (ICD-10-PCS; 2019-02-09)
PROC: 3E0A3GC Introduction of Other Therapeutic Substance into Bone Marrow, Percutaneous Approach (ICD-10-PCS; 2019-02-09)
PROC: 0DJ08ZZ Inspection of Upper Intestinal Tract, Via Natural or Artificial Opening Endoscopic (ICD-10-PCS; 2019-02-09)
PROC: 0BH17EZ Insertion of Endotracheal Airway into Trachea, Via Natural or Artificial Opening (ICD-10-PCS; 2019-02-09)
PROC: 5A1935Z Respiratory Ventilation, Less than 24 Consecutive Hours (ICD-10-PCS; 2019-02-09)
PROC: 06HM33Z Insertion of Infusion Device into Right Femoral Vein, Percutaneous Approach (ICD-10-PCS; 2019-02-09)
PROC: 30233K1 Transfusion of Nonautologous Frozen Plasma into Peripheral Vein, Percutaneous Approach (ICD-10-PCS; principal; 2019-02-09 08:15)
PROC: 30233N1 Transfusion of Nonautologous Red Blood Cells into Peripheral Vein, Percutaneous Approach (ICD-10-PCS; 2019-02-09 08:15)
DX: K26.4 Chronic or unspecified duodenal ulcer with hemorrhage (principal); C79.51 Secondary malignant neoplasm of bone; D62 Acute posthemorrhagic anemia; M84.58XA Pathological fracture in neoplastic disease, other specified site, initial encounter for fracture; C78.02 Secondary malignant neoplasm of left lung; C78.01 Secondary malignant neoplasm of right lung; I46.9 Cardiac arrest, cause unspecified; R57.8 Other shock; Z66 Do not resuscitate; Z51.5 Encounter for palliative care; I95.9 Hypotension, unspecified; C50.922 Malignant neoplasm of unspecified site of left male breast; K25.9 Gastric ulcer, unspecified as acute or chronic, without hemorrhage or perforation; D47.3 Essential (hemorrhagic) thrombocythemia; D72.828 Other elevated white blood cell count; K31.7 Polyp of stomach and duodenum; I10 Essential (primary) hypertension; R09.02 Hypoxemia; M54.5 Low back pain; Z17.0 Estrogen receptor positive status [ER+]; Z79.82 Long term (current) use of aspirin; Z79.811 Long term (current) use of aromatase inhibitors; Z79.899 Other long term (current) drug therapy; Z80.41 Family history of malignant neoplasm of ovary
CPT/HCPCS: 36415; 36430; 43243; 43255; 80048; 80053; 83690; 83735; 84484; 85025; 85610; 85730; 86850; 86900; 86901; 86920; 94002; 94760; 94770; 96361; 96374; 96375; 99285